=== PATIENT | female | born 1990 | race Caucasian/White ===

== ENCOUNTER 2016-10-20 11:31 | Emergency (ER) | payer BC, OTHER ==
[~2016-10-20] VITALS: Ht 157.5 cm; Wt 55.5 kg
[~2016-10-20 11:31] MED LIST: BSP/10 PO; KLN5X PO; MELA1TAB12 PO; ONDA4TAB10 SL; PARO1TAB27 PO
[2016-10-20 11:33] VITALS: TEMP 36.6; Ht 157.5 cm; Wt 55.5 kg
[2016-10-20] MEDS ORDERED: LORAZEPAM 2 MG/ML 1 ML VIAL IV STA (11:55)
[2016-10-20] MEDS ORDERED: SODIUM CHLORIDE 0.9% 1000ML 1,000 ML IV STA (11:55)
[2016-10-20] MEDS ORDERED: LORAZEPAM 2 MG/ML 1 ML VIAL IV ONE (12:00)
--- NOTE | 2016-10-20 12:03 | EMERGENCY ROOM VISIT NOTE ---
History Report prepared by Dagoberto: Ruddy Palomo Under the Supervision of: Dr. Juan Carlos De La Garza M.D. First contact with patient: 11:41 Chief Complaint: ANXIETY Stated Complaint: HIGH ANXIETY, NAUSEA, DIZZY, DIARRHEA History of Present Illness The patient is a 26 year old female who presents to the Emergency Room with complaints of worsened anxiety since yesterday. The patient has been unable to eat secondary to being so anxious. She has also vomited secondary to anxiety. The patient has had anxiety her whole life. Her parents both also experience anxiety. The patient had an appointment with her psychiatrist yesterday, which she missed. The patient hasn't gotten a call back to reschedule the appointment yet. Her last benzodiazepine prescription was last month. The patient denies alcohol use but does occasionally smoke marijuana. She denies any major medical problems. Source of History: patient Onset: yesterday Position: other (psyche) Quality: other (anxiety) Timing: worsening Associated Symptoms: + vomiting Review of Systems See HPI for pertinent positives & negatives. A total of 10 systems reviewed and were otherwise negative. Past Medical & Surgical Medical Problems: (1) Anxiety (2) Nausea, vomiting, and diarrhea (3) Ovarian cyst (4) Ovarian cyst, right Family History Anxiety disorder Social History Smoking Status: Current Every Day Smoker Alcohol Use: none Drug Use: marijuana Marital Status: single Housing Status: lives with significant other Occupation Status: employed Current/Historical Medications Scheduled Buspirone HCl (Buspirone HCl), 20 MG PO TID Clonazepam (Clonazepam), 0.25 MG PO BID Melatonin (Gnp Melatonin Maximum Str), 10 MG PO HS Paroxetine (Paxil), 20 MG PO DAILY Allergies Coded Allergies: No Known Allergies (Unverified , 10/20/16) Physical Exam Vital Signs Date Time Temp Pulse Resp B/P Pulse Ox O2 Delivery O2 Flow Rate FiO2 10/20/16 14:08 92 15 129/94 96 Room Air 10/20/16 13:32 97 16 123/89 97 Room Air 10/20/16 12:47 123 10/20/16 11:33 36.6 143 20 133/87 96 Room Air Physical Exam CONSTITUTIONAL: Moderate anxious distress. HEENT: No icterus, moist mucous membranes NECK: No meningismus, trachea is midline. CARDIOVASCULAR: Regular rate, normal perfusion RESPIRATORY: Unlabored breathing. Clear to auscultation. GASTROINTESTINAL: Non-tender GENITOURINARY: No flank tenderness MUSCULOSKELETAL: Full range of motion NEUROLOGIC: No acute gross focal deficits. PSYCHIATRIC: Normal affect SKIN: Normal for ethnicity. Medical Decision & Procedures Laboratory Results Test 10/20/16 12:09 Bedside Hemoglobin 16.0 g/dl (12.0-16.0) Bedside Hematocrit 47 % (37-47) Bedside Sodium 141 mEq/L (135-144) Bedside Potassium 3.7 mEq/L (3.3-5.0) Bedside Chloride 104 mEq/L (101-112) Bedside Total CO2 23 mEq/l (24-31) Anion Gap 18.0 mmol/L (16-25) Bedside Blood Urea Nitrogen 14 mg/dl (7-18) Bedside Creatinine 0.9 mg/dl (0.6-1.3) Bedside Glucose (other) 94 mg/dl (70-99) Bedside Ionized Calcium (Gerald) 1.13 mmol/l (1.12-1.32) Labs reviewed by ED physician. Medications Administered Medications (Trade) Dose Ordered Sig/Ross Route Start Time Stop Time Status Last Admin Dose Admin Lorazepam (Ativan Tab) 1 mg STK-MED ONCE .ROUTE 10/20/16 12:51 10/20/16 12:53 DC 10/20/16 12:55 1 MG Ondansetron HCl (Zofran Inj) 4 mg NOW STAT IV 10/20/16 14:10 10/20/16 14:11 DC 10/20/16 14:10 4 MG ED Course 1148: Past medical records reviewed. The patient was evaluated in room A5. A complete history and physical examination was performed. 1155: Ativan 1 mg IV, NSS 1000 ml wide open. 1200: Ativan 1 mg Iv. 1213: Ativan 0.5 mg PO. 1410: Zofran 4 mg IV. 1400: Upon reexamination the patient is doing better. I discussed results and treatment plan with the patient. She verbalizes agreement and understanding. The patient is ready for discharge. Medical Decision Etiologies such as mood disorder, infection, hypoglycemia, electrolyte abnormalities, cardiac sources, intracerebral event, toxicologic, neurologic, as well as others were entertained. 26-year-old presented to the emergency department for acute on chronic anxiety with prior benzodiazepine prescriptions through her psychiatrist. [employer]EC[employer] reviewed and previous prescriptions noted. She states she has been unable to arrange follow-up with her psychiatrist in a prompt manner. [facility] performed psychiatric screening notes previous interactions with patient as well as attempts follow-up. Outpatient follow-up arranged. Impression Primary Impression: Anxiety Scribe Attestation The scribe's documentation has been prepared under my direction and personally reviewed by me in its entirety. I confirm that the note above accurately reflects all work, treatment, procedures, and medical decision making performed by me. Departure Information Dispostion Home / Self-Care Referrals Inna Dill D.O. (PCP) Forms HOME CARE DOCUMENTATION FORM, IMPORTANT VISIT INFORMATION Patient Instructions Anxiety Body Response, My [facility]
[2016-10-20] MEDS ORDERED: LORAZEPAM 0.5 MG TAB PO STA (12:13)
[2016-10-20 12:26] LABS: ISTAT CREATININE 0.9 mg/dl (0.6-1.3); ISTAT IONIZED CALCIUM 1.13 mmol/l (1.12-1.32)
[2016-10-20] MEDS ORDERED: LORAZEPAM 1 MG TAB ONE (12:51)
[2016-10-20 14:08] VITALS: BP 129/94; PULSE 92; O2SAT 96
[2016-10-20] MEDS ORDERED: ONDANSETRON INJ 2 MG/ML 2 ML VIAL IV STA (14:10)
== END 2016-10-20 14:21 | disposition home or self-care (01) ==
LOC: C.EDB 11:33 → C.EDA 14:21
DX: F41.9 Anxiety disorder, unspecified (principal); F17.200 Nicotine dependence, unspecified, uncomplicated; Z81.8 Family history of other mental and behavioral disorders

== ENCOUNTER 2016-12-01 | Emergency (ER) | payer BC, OTHER ==
[~2016-12-01] VITALS: Ht 157.5 cm; Wt 58.2 kg
[~2016-12-01] MED LIST changes: -ONDA4TAB10 SL
[2016-12-01 00:07] VITALS: Ht 157.5 cm; Wt 58.2 kg
[2016-12-01] MEDS ORDERED: ALBUT/IPRATROP 3MG/0.5MG NEB 3 ML VIAL INH STA (00:22)
[2016-12-01] MEDS ORDERED: IBUPROFEN 600 MG TAB PO STA (00:22)
[2016-12-01] MEDS ORDERED: ACETAMINOPHEN 500 MG TAB PO STA (00:22)
[2016-12-01] MEDS ORDERED: ALBUTEROL HFA 8 GM INHALER INH STA (00:44)
[2016-12-01] MEDS ORDERED: DOXYCYCLINE HYCLATE 100 MG CAP PO ONE (00:45)
[2016-12-01 00:57] VITALS: BP 106/58; PULSE 106; TEMP 37.5; O2SAT 95
--- NOTE | 2016-12-01 01:04 | EMERGENCY ROOM VISIT NOTE ---
History First contact with patient: 00:17 Chief Complaint: RESPIRATORY PROBLEMS Stated Complaint: DIFFICULTY BREATHING,PAIN ON RIGHT SIDE Nursing Triage Summary: Patient reports non-productive cough x 2 months. Patient reports that s/s worsened tonight. States that when she was coughing she got a sharp pain in her right rib area, now states that it hurts to take a deep breath in. Patient denies SOB or any other s/s. History of Present Illness The patient is a 26 year old female who presents to the Emergency Room with complaints of cough and congestion for the past 2 months who smokes who started to have increasing symptoms the past few days. Patient developed a fever today. Patient states she's developed some right-sided chest wall discomfort when she coughs for the past few days. Patient denies constant or exertional chest pain, abdominal pain, vomiting, diarrhea, sore throat, neck stiffness, earache. She is tolerating by mouth fluids and food. Review of Systems See HPI for pertinent positives & negatives. A total of 10 systems reviewed and were otherwise negative. Past Medical/Surgical History Medical Problems: (1) Anxiety (2) Nausea, vomiting, and diarrhea (3) Ovarian cyst (4) Ovarian cyst, right Family History Anxiety disorder Social History Smoking Status: Current Every Day Smoker Alcohol Use: none Drug Use: marijuana Marital Status: single Housing Status: lives with significant other Occupation Status: employed Current/Historical Medications Scheduled Buspirone HCl (Buspirone HCl), 20 MG PO BID Clonazepam (Clonazepam), 0.25 MG PO BID Melatonin (Gnp Melatonin Maximum Str), 10 MG PO HS Paroxetine (Paxil), 20 MG PO DAILY Allergies Coded Allergies: No Known Allergies (Unverified , 12/01/16) Physical Exam Vital Signs Date Time Temp Pulse Resp B/P Pulse Ox O2 Delivery O2 Flow Rate FiO2 12/01/16 00:57 95 Room Air 12/01/16 00:57 37.5 106 20 106/58 95 Room Air 12/01/16 00:36 Room Air 12/01/16 00:07 38.0 125 20 95/60 94 Room Air Physical Exam VITALS: Vitals are noted on the nurse's note and reviewed by myself. Vital signs febrile GENERAL: Pleasant female, in no acute distress, nondiaphoretic, well-developed well-nourished. SKIN: The skin was without rashes, erythema, edema, or bruising. There is no tenting of the skin. Capillary reflex less than 2 seconds. HEAD: Normocephalic atraumatic. EARS: External auditory canals clear, tympanic membranes pearly collins without erythema or effusion bilaterally. EYES: Pupils equal round and reactive to light and accommodation. Conjunctivae without injection, sclerae without icterus. Extraocular movements intact. NOSE: Patent, turbinates without inflammation or discharge. No sinus tenderness. MOUTH: Mucous membranes mildly dry. Pharynx without erythema or exudate. Uvula midline. Airway patent. Tongue does not deviate. NECK: Supple without nuchal rigidity. No lymphadenopathy. No thyromegaly. Cervical spine is nontender. No JVD. HEART: Regular rate and rhythm without murmurs gallops or rubs. LUNGS: Mild diffuse end expiratory wheezes, without rales or rhonchi. No retractions or accessory muscle use. ABDOMEN: Positive bowel sounds x 4. Normal tympanic percussion. Soft, nontender, without masses or organomegaly. Dutta sign negative. No guarding or rebound tenderness. MUSCULOSKELETAL: No muscle atrophy, erythema, or edema noted. NEURO: Patient was alert and oriented to person place and time. Normal sensation to light and sharp touch. No focal neurological deficits. Medical Decision & Procedures Laboratory Results Test 12/01/16 00:35 Medications Administered Medications (Trade) Dose Ordered Sig/Ross Route Start Time Stop Time Status Last Admin Dose Admin Acetaminophen (Tylenol Tab) 1,000 mg NOW STAT PO 12/01/16 00:22 12/01/16 00:23 DC 12/01/16 00:29 1,000 MG Ibuprofen (Motrin Tab) 600 mg NOW STAT PO 12/01/16 00:22 12/01/16 00:23 DC 12/01/16 00:29 600 MG Albuterol/ Ipratropium (Duoneb) 3 ml NOW STAT INH 12/01/16 00:22 12/01/16 00:23 DC 12/01/16 00:29 3 ML Prednisone (PredniSONE TAB) 60 mg NOW STAT PO 12/01/16 00:22 12/01/16 00:23 DC 12/01/16 00:29 60 MG Doxycycline Hyclate (Vibramycin Cap) 100 mg ONE ONCE PO 12/01/16 00:45 12/01/16 00:46 DC 3/7/17 00:54 100 MG Albuterol (Ventolin Hfa Inhaler) 2 puffs ONE STAT INH 12/01/16 00:44 12/01/16 00:45 DC 12/01/16 00:54 2 PUFFS ED Course Prior records/ancillary studies reviewed. Triage Nursing notes reviewed. The patient's history was concerning for fever and cough. Differential diagnosis: Etiologies such as viral syndrome, otitis, pharyngitis, pneumonia, influenza, meningitis, urinary tract infection, sepsis, bacteremia, as well as others were entertained. Physical examination: Patient was alert and interactive. ER treatment provided: Tylenol, Motrin, nebulizer, prednisone On reassessment the patient felt better. Diagnostics interpreted by me: Imaging studies: Chest x-ray concerning for right lower lobe pneumonia per my interpretation This appears to be consistent with pneumonia with wheezing. Patient was strongly encouraged to quit smoking. She is started on antibiotics. She is advised to use the inhaler. She is advised to follow-up family care in a few days or here in the ER sooner for high fevers, difficulty breathing, neck stiffness, worsening signs or symptoms or as needed. Patient also had some mild chest pain with coughing most likely pleurisy due to the infection. Patient has no signs of meningitis. She was well-appearing. By the evaluation outlined above emergent etiologies such as otitis, pharyngitis, meningitis, urinary tract infection, sepsis, bacteremia, as well as others were deemed relatively unlikely. The pt informed about the findings as listed above. All questions were answered and pleased with the treatment. Return instructions were outlined and the patient was discharged in stable condition. Outpatient prescription management: Doxycycline, prednisone Referral: The patient was referred back to their primary care physician for follow-up in 2 to 3 days for a recheck of the current condition. Case reviewed with my Attending Medical Decision As above Impression Primary Impression: Right lower lobe pneumonia Departure Information Dispostion Home / Self-Care Condition GOOD Referrals Inna Dill D.O. (PCP) Patient Instructions [facility] Additional Instructions Doxycycline 100mg: Take one pill twice daily for seven days for your infection. Take with food, but avoid dairy. Avoid prolonged sun exposure since this medication makes you temporarily more susceptible to sunburns. All antibiotics can cause diarrhea. If this occurs and you feel worse or it does not resolve in 1-2 days follow up with your doctor or return to the Emergency Department as this could be signs of serious underlying problems. Any medication can cause an allergic reaction, stop the pills immediately and return to the ER for rash, hives, breathing difficulties, or swelling. Albuterol Inhaler: Take 2 puffs four times daily for seven days, then as needed. Prednisone 50 m tablet daily for the next 4 days. Acetaminophen(Tylenol) may be used for fever or pain. Use 1000mg every six hours as needed. Avoid using more than 3000mg in a 24 hour period. AND/OR Ibuprofen(Motrin, Advil) may be used for fever or pain. Use 600mg every six hours as needed. Take with food. Avoid using more than 2400mg in a 24 hour period. Do not use 2400mg per day for more than three consecutive days without physician direction. Prolonged inappropriate use can lead to stomach upset or ulcers. Controlling your fever with Tylenol and Ibuprofen as above will make you feel better. Rest and drink plenty of fluids. Avoid strenuous activity until your symptoms resolve and your breathing returns to normal. Continue current medications. Return to the ER for chest pain, difficulty breathing, persistent fevers, vomiting, worsening of your condition, or as needed. Follow-up with family care in 2-3 days. Problem Qualifiers Primary Impression: Right lower lobe pneumonia Pneumonia type: due to unspecified organism Qualified Codes: J18.1 - Lobar pneumonia, unspecified organism
[2016-12-01] MEDS ORDERED: DOXY100C2 PO (01:05)
[2016-12-01] MEDS ORDERED: PRED50TA PO (01:05)
[2016-12-01 02:54] LABS: INFLUENZA A PCR Neg for Influ A (NEG); INFLUENZA B PCR Neg for Influ B (NEG)
--- NOTE | 2016-12-01 06:33 | DIAGNOSTIC IMAGING REPORT ---
CHEST 2 VIEWS ROUTINE CLINICAL HISTORY: cough/fever COMPARISON STUDY: 09/14/2016 FINDINGS: The cardiac and mediastinal contours remain stable. There are bibasal airspace opacities which in the lateral view appear localized to the lingula and right middle lobe. Given history, the findings likely represent a pneumonia. Films subsequent to treatment are recommended in follow-up.[ No pleural effusions are visualized. IMPRESSION: Bibasal airspace opacities consistent with pneumonia. Films subsequent to treatment are recommended in follow-up. Electronically signed by: Raymond Walters M.D. 12/01/2016 6:31 AM Dictated Date/Time: 12/01/2016 6:30 AM
== END 2016-12-01 01:12 | disposition home or self-care (01) ==
LOC: C.EDB 00:01
DX: J18.1 Lobar pneumonia, unspecified organism (principal); F41.9 Anxiety disorder, unspecified; F17.210 Nicotine dependence, cigarettes, uncomplicated; F12.10 Cannabis abuse, uncomplicated; Z79.899 Other long term (current) drug therapy

== ENCOUNTER 2017-04-15 07:11 | Emergency (ER) | payer BC, OTHER ==
[~2017-04-15] VITALS: Ht 157.5 cm; Wt 64.0 kg
[~2017-04-15 07:11] MED LIST changes: +DOXY100C2 PO
[2017-04-15 07:15] VITALS: TEMP 36.9; Ht 157.5 cm; Wt 64.0 kg
[2017-04-15] MEDS ORDERED: SODIUM CHLORIDE 0.9% 1000ML 1,000 ML IV STA (07:38)
[2017-04-15] MEDS ORDERED: LORAZEPAM 2 MG/ML 1 ML VIAL IV STA (07:38)
[2017-04-15] MEDS ORDERED: ONDANSETRON INJ 2 MG/ML 2 ML VIAL IV STA (07:38)
[2017-04-15] MEDS ORDERED: ATR10 PO (07:40)
[2017-04-15 07:52] LABS: BASO % 0.3 %; BASO ABS # 0.03 K/uL (0-0.2); COMPLETE YES; EOS % 1.8 %; HEMATOCRIT 42.1 % (37-47); IG% 0.2 %; LYMPH % 6.5 %; LYMPH ABS # 0.63 K/uL (1.2-3.4); MEAN CELL VOLUME 88.4 fL (80-100); MEAN CORPUSCULAR HEMOGLOBIN 30.9 pg (25-34); MEAN CORPUSCULAR HGB CONC 34.9 g/dl (32-36); MEAN PLATELET VOLUME 9.8 fL (7.4-10.4); MONO % 6.4 %; NEUT % 84.8 %; PLATELET COUNT 283 K/uL (130-400); RED BLOOD COUNT 4.76 M/uL (4.2-5.4); WHITE BLOOD COUNT 9.69 K/uL (4.8-10.8)
[2017-04-15 07:59] LABS: MANUAL MICROSCOPIC REQUIRED? YES; URINE APPEARANCE SL CLOUDY (CLEAR); URINE BILIRUBIN NEG (NEG); URINE COLOR YELLOW; URINE NITRITE NEG (NEG); URINE PH >= 9.0 (4.5-7.5); UROBILINOGEN NEG (NEG)
[2017-04-15 08:01] LABS: BUN/CREATININE RATIO 10.3 (10-20); CALCIUM 9.4 mg/dl (8.5-10.1); CREATININE 0.98 mg/dl (0.60-1.20); POTASSIUM 3.7 mmol/L (3.5-5.1)
[2017-04-15 08:03] LABS: PREG INTERNAL NEGATIVE QC NEG CLEAR BACKGROUND; PREG INTERNAL POSITIVE QC POS CONTROL LINE
[2017-04-15 08:11] LABS: REVIEW REQ? NO; SULFASALICYLIC ACID NEG (NEG)
[2017-04-15 08:15] LABS: URINE MUCUS PRESENT (NONE PRSENT)
[2017-04-15 08:16] LABS: URINE BACTERIA 1+ (NEG); URINE RBC 0-4 /hpf (0-4)
[2017-04-15 08:17] LABS: BENZODIAZEPINE, URINE NEG (NEG); COCAINE,URINE NEG (NEG); PHENCYCLIDINE, URINE NEG (NEG)
--- NOTE | 2017-04-15 08:19 | DIAGNOSTIC IMAGING REPORT ---
ABDOMEN 2VIEW W/PA CHEST RTN HISTORY: 27 years Female acute abdominal pain COMPARISON: Chest radiograph 12/01/2016 TECHNIQUE: Frontal view of the chest with erect and supine views of the abdomen FINDINGS: Cardiomediastinal and hilar silhouettes are within normal limits. A nodular opacity at the level left lung base is seen suggesting nipple shadow. No pneumothorax, pleural effusion or focal airspace consolidation. No pneumoperitoneum on the upright projection. No significant air-fluid levels are seen. The bowel gas pattern is nonobstructive. Mild to moderate volume of formed stool seen throughout the colon. There is gentle convex left curvature of the lumbar spine. Gentle convex right curvature of the midthoracic spine is noted. IMPRESSION: 1. No acute cardiopulmonary process. 2. Nonobstructive bowel gas pattern. 3. Mild sigmoidal thoracolumbar scoliosis. The above report was generated using voice recognition software. It may contain grammatical, syntax or spelling errors. Electronically signed by: Rommel Colón M.D. 04/15/2017 8:18 AM Dictated Date/Time: 04/15/2017 8:13 AM
[2017-04-15 08:47] VITALS: BP 103/58; PULSE 125; O2SAT 97
[2017-04-15] MEDS ORDERED: ONDA4TAB46 PO (08:52)
--- NOTE | 2017-04-17 10:29 | EMERGENCY ROOM VISIT NOTE ---
ED Visit Note First contact with patient: 07:14 Chief Complaint: Nausea and vomiting. History of Present Illness: Ms. Alvares is a 27-year-old white female who ambulates into the ED accompanied by male friend with multiple complaints. Historically patient reports she has a history of anxiety and irritable bowel syndrome. Patient reports her symptoms started last night approximately dinnertime. At that time she began to have nausea and throughout the night it has been continuous with multiple episodes of vomiting. This is worsened with eating or drinking. She has not identified any alleviating factors related to nausea or vomiting. Associated with her nausea and vomiting she reports that she is having dizziness and feels short of breath. This morning while driving into the hospital to be seen she reports she started getting tingling sensations in her extremities and chest. She also continues to feel short of breath but does report intermittently she has chills but has not been able to find any chelsey fevers and she is feeling very anxious because she was supposed to start a new job today. She denies skin eruptions, skin color changes, recent head trauma, cough, wheezing, palpitations, orthopnea, dependent edema, previous clots, claudication , cramping, diarrhea, constipation, hematemesis, rectal bleeding, black/tarry stools, urinary symptoms, hematuria, vaginal bleeding, vaginal discharge. Review of Systems: As noted above in history of present illness. All body systems were reviewed and found to be negative as noted above. Past Medical History: As previously noted, bronchitis, pneumonia, depression Current Medications: Medications Dose Route/Sig Max Daily Dose Days Date Category Hydroxyzine HCl 10 Mg Tab 10 Mg PO HS 04/15/17 Reported Gnp Melatonin Maximum Str (Melatonin) 5 Mg Tab 10 Mg PO HS 09/14/16 Reported Clonazepam 0.5 Mg Tab 0.25 Mg PO BID 06/07/16 Reported Buspirone HCl 10 Mg Tab 20 Mg PO BID 06/07/16 Reported Paxil (Paroxetine HCl) 20 Mg Tab 20 Mg PO DAILY 06/07/16 Reported Allergies to Medications: Patient denies. Social History: Patient is currently employed; she feels safe in her home environment; she admits to tobacco use and marijuana use and denies alcohol use. Physical Examination: Vital Signs: Date Time Temp Pulse Resp B/P (MAP) Pulse Ox O2 Delivery O2 Flow Rate FiO2 04/15/17 08:47 125 18 103/58 97 Room Air 04/15/17 07:47 94 109/68 97 111/83 104 114/73 04/15/17 07:21 117 04/15/17 07:20 118 04/15/17 07:15 36.9 133 20 121/76 100 Room Air GENERAL: 27-year-old female in mild to moderate distress due to symptoms, nontoxic-appearing, afebrile and hemodynamically stable. Patient is very anxious and intermittently tearful. NEUROLOGICAL: Awake, alert and oriented to person, place and time. Answering questions appropriately and following commands. Normal gait. Good hand eye coordination. No focal motor or sensory deficits. SKIN: Warm, dry and pink. No soft tissue eruptions or trauma noted. HEENT: Atraumatic and normocephalic. PERRLA. Sclera white and conjunctiva pink. No drainage from naris. Oral cavity moist and pink. Pharynx is nonerythematous or edematous. Speech normal. No lymphadenopathy. Trachea midline. No jugular venous distention. No carotid bruits. BACK: No tenderness over the bony spine. No CVA tenderness. THORAX: Lungs sounds are clear to auscultation and equal bilaterally with symmetrical chest wall. No wheezing, rales or rhonchi. No crepitus, tenderness , subcutaneous air or deformities noted. HEART: Tachycardic rate and rhythm. No gallops, rubs or murmurs are appreciated. ABDOMEN: Flat, soft and nontender. Positive bowel sounds in all quadrants. No guarding, rigidity or organomegaly. EXTREMITIES: Moves all extremities well on command and with purpose. All distal neurovascular statuses are intact and equal bilaterally. No calf tenderness or cords. ED Course: Patient is assessed as noted above. Patient's medication list was reviewed. Laboratory Testing: Test 04/15/17 07:27 04/15/17 07:30 Range/Units White Blood Count 9.69 4.8-10.8 K/uL Red Blood Count 4.76 4.2-5.4 M/uL Hemoglobin 14.7 12.0-16.0 g/dL Hematocrit 42.1 37-47 % Mean Corpuscular Volume 88.4 80-100 fL Mean Corpuscular Hemoglobin 30.9 25-34 pg Mean Corpuscular Hemoglobin Concent 34.9 32-36 g/dl Platelet Count 283 130-400 K/uL Mean Platelet Volume 9.8 7.4-10.4 fL Neutrophils (%) (Auto) 84.8 % Lymphocytes (%) (Auto) 6.5 % Monocytes (%) (Auto) 6.4 % Eosinophils (%) (Auto) 1.8 % Basophils (%) (Auto) 0.3 % Neutrophils # (Auto) 8.22 1.4-6.5 K/uL Lymphocytes # (Auto) 0.63 1.2-3.4 K/uL Monocytes # (Auto) 0.62 0.11-0.59 K/uL Eosinophils # (Auto) 0.17 0-0.5 K/uL Basophils # (Auto) 0.03 0-0.2 K/uL RDW Standard Deviation 42.6 36.4-46.3 fL RDW Coefficient of Variation 13.2 11.5-14.5 % Immature Granulocyte % (Auto) 0.2 % Immature Granulocyte # (Auto) 0.02 0.00-0.02 K/uL Sodium Level 137 136-145 mmol/L Potassium Level 3.7 3.5-5.1 mmol/L Chloride Level 105 98-107 mmol/L Carbon Dioxide Level 25 21-32 mmol/L Anion Gap 7.0 3-11 mmol/L Blood Urea Nitrogen 10 7-18 mg/dl Creatinine 0.98 0.60-1.20 mg/dl Est Creatinine Clear Calc Drug Dose 77.1 ml/min Estimated GFR () 92.9 Estimated GFR (Non- 80.2 BUN/Creatinine Ratio 10.3 10-20 Random Glucose 95 70-99 mg/dl Calcium Level 9.4 8.5-10.1 mg/dl Total Bilirubin 1.6 0.2-1 mg/dl Direct Bilirubin 0.3 0-0.2 mg/dl Aspartate Amino Transf (AST/SGOT) 16 15-37 U/L Alanine Aminotransferase (ALT/SGPT) 15 12-78 U/L Alkaline Phosphatase 86 45-117 U/L Total Protein 8.1 6.4-8.2 gm/dl Albumin 4.2 3.4-5.0 gm/dl Lipase 106 73-393 U/L Human Chorionic Gonadotropin, Qual NEG NEG Urine Color YELLOW Urine Appearance SL CLOUDY CLEAR Urine pH >= 9.0 4.5-7.5 Urine Specific [place] 1.010 1.000-1.030 Urine Protein NEG NEG Urine Glucose (UA) NEG NEG Urine Ketones TRACE NEG Urine Occult Blood 3+ NEG Urine Nitrite NEG NEG Urine Bilirubin NEG NEG Urine Urobilinogen NEG NEG Urine Leukocyte Esterase NEG NEG Urine RBC 0-4 0-4 /hpf Urine WBC 1-5 0-5 /hpf Urine Epithelial Cells >30 0-5 /lpf Urine Bacteria 1+ NEG Urine Mucus PRESENT NONE PRSENT Urine Test NEG NEG Urine Opiates Screen NEG NEG Urine Methadone, Qualitative NEG NEG Urine Barbiturates NEG NEG Urine Phencyclidine (PCP) Level NEG NEG Ur Amphetamine/Methamphetamine NEG NEG MDMA (Ecstasy) Screen NEG NEG Urine Benzodiazepines Screen NEG NEG Urine Cocaine Metabolite NEG NEG Urine Marijuana (THC) POS NEG EKG: Was read by myself and reviewed with Dr. Moya; shows normal sinus rhythm with a ventricular rate of 90 bpm. Normal axis, intervals and complexes. No acute ST changes indicating ischemia, injury or infarction. This was compared to a previous from August 2016 and no acute changes were noted. Acute Abdominal Series: Were read by myself and the radiologist showing a PA chest with no signs of infiltrates, effusions or pneumothorax. Normal heart silhouette and bony anatomy. Abdominal component shows no pneumoperitoneum, air -fluid levels and a nonobstructive bowel gas pattern. Radiologist did note mild to moderate fecal retention throughout the colon and a gentle convex left curvature of the lumbar spine and mid thoracic spine. Patient was hydrated with normal saline and received 4 mg of Zofran IV and 1 mg of Ativan IV. Patient was reassessed multiple times during her stay in the emergency department. Patient's case was reviewed with Dr. Moya; we agreed on diagnostic approach, treatment, disposition and plan. Patient was educated about today's findings and instructed on her treatment plan ; she verbalizes understanding and agreement with this plan. Clinical Impression: Nausea and vomiting. Anxiety exacerbation. Decision-Making: Initially my differential diagnosis I considered gastritis, pneumonia, pyelonephritis, pancreatitis, anxiety exacerbation, early and other causes. Disposition: Patient discharged home in stable condition accompanied by male friend; prior to departure she was reassessed and subjectively reported she was feeling much better. She had resolution of nausea/vomiting and felt much less anxious. Plan: Patient was encouraged to continue her current medications as prescribed. Patient was prescribed Zofran ODT and instructed on its use. Patient was encouraged use a bland diet for the next 48 hours and avoid stomach irritants. Patient was encouraged increased clear fluids. Patient was encouraged to follow-up with her PCP for recheck in 2-3 days. Patient was encouraged return ED for worsening/uncontrolled vomiting, bloody vomitus, bloody stools, fevers, worsening ascites or any new/concerning symptoms.
== END 2017-04-15 09:10 | disposition home or self-care (01) ==
LOC: C.EDB 07:12 → C.EDA 09:10
DX: R11.2 Nausea with vomiting, unspecified (principal); F41.9 Anxiety disorder, unspecified; K58.9 Irritable bowel syndrome, unspecified; K59.00 Constipation, unspecified; F32.9 Major depressive disorder, single episode, unspecified; F17.200 Nicotine dependence, unspecified, uncomplicated; F12.10 Cannabis abuse, uncomplicated

== ENCOUNTER 2017-09-22 03:51 | Emergency (ER) | payer BC ==
[~2017-09-22] VITALS: Ht 157.5 cm; Wt 68.5 kg
[~2017-09-22 03:51] MED LIST changes: -DOXY100C2 PO
[2017-09-22 03:53] VITALS: TEMP 37.4; Ht 157.5 cm; Wt 68.5 kg
[2017-09-22] MEDS ORDERED: LORAZEPAM 2 MG/ML 1 ML VIAL IV STA ×2 (04:06→04:27)
[2017-09-22] MEDS ORDERED: SODIUM CHLORIDE 0.9% 500ML 500 ML IV STA (04:06)
[2017-09-22] MEDS ORDERED: ONDANSETRON INJ 2 MG/ML 2 ML VIAL IV STA (04:16)
[2017-09-22 04:20] LABS: BASO % 0.1 %; BASO ABS # 0.01 K/uL (0-0.2); HEMATOCRIT 41.4 % (37-47); HEMOGLOBIN 14.2 g/dL (12.0-16.0); IG# 0.04 K/uL (0.00-0.02); LYMPH % 22.6 %; LYMPH ABS # 2.52 K/uL (1.2-3.4); MEAN CELL VOLUME 86.3 fL (80-100); MEAN CORPUSCULAR HEMOGLOBIN 29.6 pg (25-34); MEAN CORPUSCULAR HGB CONC 34.3 g/dl (32-36); MEAN PLATELET VOLUME 9.9 fL (7.4-10.4); MONO % 7.4 %; MONO ABS # 0.83 K/uL (0.11-0.59); NEUT % 69.5 %; NEUT ABS # 7.75 K/uL (1.4-6.5); PLATELET COUNT 189 K/uL (130-400); RED CELL DISTRIBUTION WIDTH CV 12.8 % (11.5-14.5); RED CELL DISTRIBUTION WIDTH SD 40.3 fL (36.4-46.3); WHITE BLOOD COUNT 11.15 K/uL (4.8-10.8)
--- NOTE | 2017-09-22 04:32 | EMERGENCY ROOM VISIT NOTE ---
History Report prepared by Dagoberto: Jamie Bautista Under the Supervision of: Dr. Macarena Rivas D.O. First contact with patient: 03:58 Chief Complaint: NAUSEA Stated Complaint: NAUSEA,PNEUMONIA Nursing Triage Summary: Pt reports she was dx with pneumonia yesterday and placed on Zithromax. Tonight pt having nausea, vomiting and abdominal cramps. History of Present Illness The patient is a 27 year old female who presents to the Emergency Room with complaints of nausea that began yesterday. The patient began having a cough a couple of days ago, but did not think much of it. Yesterday, the patient woke and with a worsening cough so she went to an Urgent Care center. She was diagnosed with pneumonia per auscultation and did not receive a chest x-ray. She was placed on Azithromycin which she has taken in the past, which has not given her problems. She went home and began to experience nausea and vomiting whenever she tried to eat or drink anything. She notes that her cough has not improved. She is also experiencing diarrhea. She has been having trouble sleeping as well. She has a past medical history of anxiety and is taking medications for it. She denies any abdominal pain, leg cramping, or leg swelling. Her last menstrual cycle was three weeks ago. Source of History: patient Onset: yesterday Position: other (GI) Symptom Intensity: moderate Quality: other (Nausea) Timing: constant Associated Symptoms: + cough, + vomiting, + diarrhea, No abdominal pain Note: She denies any leg swelling or leg cramping. Review of Systems See HPI for pertinent positives & negatives. A total of 10 systems reviewed and were otherwise negative. Past Medical & Surgical Medical Problems: (1) Anxiety (2) Nausea, vomiting, and diarrhea (3) Ovarian cyst (4) Ovarian cyst, right Family History Anxiety disorder Social History Smoking Status: Current Every Day Smoker Alcohol Use: none Drug Use: marijuana Marital Status: single Housing Status: lives with significant other Occupation Status: employed Current/Historical Medications Scheduled Buspirone HCl (Buspirone HCl), 20 MG PO BID Clonazepam (Clonazepam), 0.5 MG PO HS Hydroxyzine HCl (Hydroxyzine HCl), 25 MG PO HS Melatonin (Gnp Melatonin Maximum Str), 10 MG PO HS Paroxetine (Paxil), 20 MG PO HS Paroxetine (Paroxetine HCl), 40 MG PO QAM Allergies Coded Allergies: No Known Allergies (Unverified , 09/22/17) Physical Exam Vital Signs Date Time Temp Pulse Resp B/P (MAP) Pulse Ox O2 Delivery O2 Flow Rate FiO2 09/22/17 06:21 113 18 114/72 95 Room Air 09/22/17 05:09 99 16 107/66 95 Room Air 09/22/17 03:53 37.4 123 24 140/85 95 Room Air Physical Exam General: Appears to be extremely anxious. HEENT: Head - normocephalic and atraumatic Pupils are equal, round, and reactive to light. Extraocular eye muscles are intact, and sclera are anicteric. Nose - moist nasal mucosa without discharge. Mouth - moist buccal mucosa. Oropharynx is nonerythematous and there is no tonsillar exudate or edema noted. Neck: Supple; no JVD, nuchal rigidity, cervical lymphadenopathy. Heart: Tachycardic rate and regular rhythm. There is a normal S1 and S2 with no murmurs, clicks, or gallops appreciated. Lungs: Clear to auscultation bilaterally with no wheezes, rales, or rhonchi. Abdomen: Soft, completely nontender, nondistended, with good bowel sounds. There are no palpable pulsatile masses or hepatosplenomegaly. There is no guarding, rigidity, or rebound noted. Extremities: No evidence of cyanosis, clubbing, or edema. There are easily palpable peripheral pulses. Skin: warm and dry with good turgor and no rashes. Medical Decision & Procedures Laboratory Results 09/22/17 04:05 Red Blood Count 4.80, Mean Corpuscular Volume 86.3, Mean Corpuscular Hemoglobin 29.6, Mean Corpuscular Hemoglobin Concent 34.3, Mean Platelet Volume 9.9, Neutrophils (%) (Auto) 69.5, Lymphocytes (%) (Auto) 22.6, Monocytes (%) (Auto) 7.4, Eosinophils (%) (Auto) 0.0, Basophils (%) (Auto) 0.1, Neutrophils # (Auto) 7.75, Lymphocytes # (Auto) 2.52, Monocytes # (Auto) 0.83, Eosinophils # (Auto) 0.00, Basophils # (Auto) 0.01 09/22/17 04:05 Test 09/22/17 04:05 White Blood Count 11.15 K/uL (4.8-10.8) Red Blood Count 4.80 M/uL (4.2-5.4) Hemoglobin 14.2 g/dL (12.0-16.0) Hematocrit 41.4 % (37-47) Mean Corpuscular Volume 86.3 fL (80-100) Mean Corpuscular Hemoglobin 29.6 pg (25-34) Mean Corpuscular Hemoglobin Concent 34.3 g/dl (32-36) Platelet Count 189 K/uL (130-400) Mean Platelet Volume 9.9 fL (7.4-10.4) Neutrophils (%) (Auto) 69.5 % Lymphocytes (%) (Auto) 22.6 % Monocytes (%) (Auto) 7.4 % Eosinophils (%) (Auto) 0.0 % Basophils (%) (Auto) 0.1 % Neutrophils # (Auto) 7.75 K/uL (1.4-6.5) Lymphocytes # (Auto) 2.52 K/uL (1.2-3.4) Monocytes # (Auto) 0.83 K/uL (0.11-0.59) Eosinophils # (Auto) 0.00 K/uL (0-0.5) Basophils # (Auto) 0.01 K/uL (0-0.2) RDW Standard Deviation 40.3 fL (36.4-46.3) RDW Coefficient of Variation 12.8 % (11.5-14.5) Immature Granulocyte % (Auto) 0.4 % Immature Granulocyte # (Auto) 0.04 K/uL (0.00-0.02) Anion Gap 8.0 mmol/L (3-11) Est Creatinine Clear Calc Drug Dose 84.8 ml/min Estimated GFR () 100.3 Estimated GFR (Non- 86.5 BUN/Creatinine Ratio 7.0 (10-20) Calcium Level 9.0 mg/dl (8.5-10.1) Total Bilirubin 0.6 mg/dl (0.2-1) Direct Bilirubin 0.2 mg/dl (0-0.2) Aspartate Amino Transf (AST/SGOT) 36 U/L (15-37) Alanine Aminotransferase (ALT/SGPT) 28 U/L (12-78) Alkaline Phosphatase 109 U/L (45-117) Total Protein 8.3 gm/dl (6.4-8.2) Albumin 3.9 gm/dl (3.4-5.0) Laboratory results per my review. Medications Administered Medications (Trade) Dose Ordered Sig/Ross Route Start Time Stop Time Status Last Admin Dose Admin Sodium Chloride 500 ml @ 999 mls/hr Q31M STAT IV 09/22/17 04:06 09/22/17 04:36 DC 09/22/17 04:18 999 MLS/HR Ondansetron HCl (Zofran Inj) 4 mg NOW STAT IV 09/22/17 04:16 09/22/17 04:17 DC 09/22/17 04:21 4 MG Lorazepam (Ativan Inj) 1 mg NOW STAT IV 09/22/17 04:27 09/22/17 04:29 DC 09/22/17 04:34 1 MG Promethazine HCl 12.5 mg/Sodium Chloride 50.5 ml @ 204 mls/hr NOW STAT IV 09/22/17 05:51 09/22/17 06:05 DC 09/22/17 06:01 204 MLS/HR Procedure Sodium Chloride 500 ml @ 999 mls/hr IV Zofran Inj 4 mg IV Ativan Inj 1 mg IV Promethazine HCl 12.5 mg/Sodium Chloride 50.5 ml @ 204 mls/hr IV ED Course 0358: Past medical records reviewed. The patient was evaluated in room A4. A complete history and physical exam was performed. An IV lock was initiated and labs are drones above. 0406: Ordered Sodium Chloride 500 ml @ 999 mls/hr IV. 0416: She notified me that she does not want to Ativan and would like to try Zofran. Ordered Zofran Inj 4 mg IV. 0427: She would now like the Ativan. Ordered Ativan Inj 1 mg IV. 0514: Upon reevaluation, she is now able to drink clear fluids. 0520: She is feeling significantly better. She is drinking water but would prefer Cece Olamide. 0547: The patient is feeling more nauseated and anxious at this time. I will order her Phenergan. 0551: Ordered Promethazine HCl 12.5 mg/Sodium Chloride 50.5 ml @ 204 mls/hr IV 0625: Upon reevaluation, the patient had gotten up to go to the bathroom and became moderately nauseated. She began to dry heave without physically vomiting. I offered her further treatment as an inpatient in our facility but she refused stating that she would like to try to go home. 0645: Upon reevaluation, the patient is resting. I discussed findings and results with her. She continues to feel nauseated but would still like to go home. I will give her a Zofran home pack . She verbalized agreement of the treatment plan. She was discharged home. Medical Decision The patient is a 27 year old female who presents to the ED with nausea. Differential diagnosis includes medication side effects, anxiety attack, and viral gastritis. Laboratory Results: White blood cell count 11.1, stable H&H, normal renal function, glucose 124, potassium and sodium slightly low, LFTs normal This is a 27-year-old female patient with a history of significant anxiety. The patient was diagnosed with a pneumonia and started Zithromax. She then developed significant nausea which seems to have exacerbated her anxiety. The patient was given multiple anti-nausea meds along with some Ativan. She would have intermittent times of relief but the nausea and anxiety persisted. I had off the patient to stay in the hospital for intractable nausea but she declined. I've encouraged patient to follow-up with her PCP if the symptoms persist. She should take her Zithromax in the evenings to minimize the side effects. She was told to return to the emergency department if she had worsening symptoms. Medication Reconcilliation Current Medication List: was personally reviewed by me Blood Pressure Screening Patient's blood pressure: Normal blood pressure Blood pressure disposition: Did not require urgent referral Prior to receiving fluids, Ativan, and Zofran, the patient was hypertensive which decreased after receiving these medications and was situational. Impression Primary Impression: Nausea & vomiting Scribe Attestation The scribe's documentation has been prepared under my direction and personally reviewed by me in its entirety. I confirm that the note above accurately reflects all work, treatment, procedures, and medical decision making performed by me. Departure Information Dispostion Home / Self-Care Referrals No Doctor, Assigned (PCP) Forms HOME CARE DOCUMENTATION FORM, IMPORTANT VISIT INFORMATION Patient Instructions My [facility], [facility] Additional Instructions Rest. take plenty of clear liquids Take zithromax at night with some food to avoid nausea Return to the ER if symptoms worsen. Problem Qualifiers Primary Impression: Nausea & vomiting Vomiting type: unspecified Vomiting Intractability: intractable Qualified Codes: R11.2 - Nausea with vomiting, unspecified
[2017-09-22 04:42] LABS: ALBUMIN 3.9 gm/dl (3.4-5.0); CREATININE 0.92 mg/dl (0.60-1.20); POTASSIUM 3.3 mmol/L (3.5-5.1)
[2017-09-22 04:45] LABS: TOTAL PROTEIN 8.3 gm/dl (6.4-8.2)
[2017-09-22] MEDS ORDERED: PROMETHAZINE HCL INJ 12.5 MG in SODIUM CHLORIDE 0.9% 50ML 50 ML IV STA (05:51)
[2017-09-22 06:44] VITALS: BP 112/73; PULSE 103; O2SAT 95
[2017-09-22] MEDS ORDERED: ONDANSETRON HOME PACK 4MG OD TAB PO ONE (06:45)
[2017-09-22] MEDS ORDERED: PROM25SU28 PR (15:12)
[2017-09-22] MEDS ORDERED: PROM12.529 PO (15:12)
[2017-09-22] MEDS ORDERED: CEPH-571 PO (15:12)
[2017-09-28] MEDS ORDERED: NICO14DI5 TD (10:41)
[2017-09-28] MEDS ORDERED: LEVO-18 PO (10:41)
[2017-09-28] MEDS ORDERED: VNTHFA/IN INH (13:03)
[2017-09-28] MEDS ORDERED: ONDA4TAB65 PO (14:31)
[2017-12-22] MEDS ORDERED: CLON0.5T9 PO (20:44)
== END 2017-09-22 06:47 | disposition home or self-care (01) ==
LOC: C.EDB 03:51 → C.EDA 06:47
DX: R11.2 Nausea with vomiting, unspecified (principal); J18.9 Pneumonia, unspecified organism; F41.9 Anxiety disorder, unspecified; F17.200 Nicotine dependence, unspecified, uncomplicated; Z81.8 Family history of other mental and behavioral disorders; R19.7 Diarrhea, unspecified; N30.01 Acute cystitis with hematuria; N83.201 Unspecified ovarian cyst, right side; F12.10 Cannabis abuse, uncomplicated

== ENCOUNTER 2017-09-22 11:46 | Emergency (ER) | payer BC ==
[~2017-09-22] VITALS: Ht 157.5 cm; Wt 69.3 kg
[~2017-09-22 11:46] MED LIST changes: +ATR25 PO; +PRX/40 PO
[2017-09-22 11:50] VITALS: TEMP 37.1; Ht 157.5 cm; Wt 69.3 kg
[2017-09-22] MEDS ORDERED: GI COCKTAIL PO STA (12:06)
[2017-09-22] MEDS ORDERED: ONDANSETRON 4MG OD TAB PO STA (12:06)
[2017-09-22] MEDS ORDERED: FAMOTIDINE 20 MG TAB PO ONE (12:15)
[2017-09-22] MEDS ORDERED: LIDOCAINE HCL 2% VISC SOLN 20 ML UDC ONE (12:16)
[2017-09-22] MEDS ORDERED: ALUMINUM/MAGNESIUM SUSP 30 ML UDC ONE (12:17)
--- NOTE | 2017-09-22 12:17 | EMERGENCY ROOM VISIT NOTE ---
History Report prepared by Dagoberto: Yesenia Armando Under the Supervision of: Dr. Onur Mercer M.D. First contact with patient: 12:00 Chief Complaint: NAUSEA Stated Complaint: NAUSEA,PNEUMONIA Nursing Triage Summary: "I was here a couple hours ago. They tried some medicines they wanted me to stay but I left. I am unable to keep anything down. so Im back." History of Present Illness The patient is a 27 year old female with a past medical history of anxiety and ovarian cysts who presents to the ED with a cc of nausea beginning 2 days ago. Positive incontinence, which worsens with coughing. Negative appetite, changes in medicine or diet, and diarrhea. She notes she has her stomach has been burning, which worsens when she tries to eat. The patient states that she was diagnosed with pneumonia recently, noting she took a z-pack today. Source of History: patient Onset: 2 days ago Position: other (global) Quality: other (nausea) Modifying Factors (Worsening): eating Associated Symptoms: + cough, No diarrhea Review of Systems See HPI for pertinent positives and negatives. A total of ten systems were reviewed and were otherwise negative. Past Medical & Surgical Medical Problems: (1) Anxiety (2) Nausea, vomiting, and diarrhea (3) Ovarian cyst (4) Ovarian cyst, right Family History Anxiety disorder Social History Smoking Status: Current Every Day Smoker Alcohol Use: none Drug Use: marijuana Marital Status: single Housing Status: lives with significant other Occupation Status: employed Current/Historical Medications Scheduled Buspirone HCl (Buspirone HCl), 20 MG PO BID Cephalexin (Keflex), 1 CAP PO BID Clonazepam (Clonazepam), 0.5 MG PO HS Hydroxyzine HCl (Hydroxyzine HCl), 25 MG PO HS Melatonin (Gnp Melatonin Maximum Str), 10 MG PO HS Paroxetine (Paxil), 20 MG PO HS Paroxetine (Paroxetine HCl), 40 MG PO QAM Promethazine Hcl (Phenergan), 12.5 MG PO Q6H Scheduled PRN Promethazine Hcl (Phenergan Suppository), 25 MG NM Q6H PRN for Nausea Allergies Coded Allergies: No Known Allergies (Unverified , 09/22/17) Physical Exam Vital Signs Date Time Temp Pulse Resp B/P (MAP) Pulse Ox O2 Delivery O2 Flow Rate FiO2 09/22/17 15:35 105 20 112/65 98 09/22/17 14:31 111 16 115/71 93 Room Air 09/22/17 13:09 112 16 106/75 94 Room Air 09/22/17 11:50 37.1 100 18 116/78 94 Room Air Physical Exam GENERAL: Awake, alert, well-appearing, NAD HENT: Normocephalic, atraumatic. EYES: Normal conjunctiva. Sclera non-icteric. NECK: Supple. No nuchal rigidity. FROM. RESPIRATORY: CTAB, no rhonchi, wheezing, crackles CARDIAC: RRR, no MRG ABDOMEN: Epigastric tenderness to palpitation. Soft, NTND, BS+ MSK: No chest wall TTP, no LE edema NEURO: GCS 15, CN 2-12 intact, moves all 4s on command SKIN: No rash or jaundice noted. Medical Decision & Procedures Laboratory Results Test 09/22/17 12:32 Urine Color DK YELLOW Urine Appearance CLEAR (CLEAR) Urine pH 6.0 (4.5-7.5) Urine Specific Orient 1.030 (1.000-1.030) Urine Protein 1+ (NEG) Urine Glucose (UA) NEG (NEG) Urine Ketones 1+ (NEG) Urine Occult Blood NEG (NEG) Urine Nitrite NEG (NEG) Urine Bilirubin NEG (NEG) Urine Urobilinogen POS (NEG) Urine Leukocyte Esterase NEG (NEG) Urine WBC (Auto) 5-10 /hpf (0-5) Urine RBC (Auto) 10-30 /hpf (0-4) Urine Hyaline Casts (Auto) 10-30 /lpf (0-5) Urine Epithelial Cells (Auto) >30 /lpf (0-5) Urine Bacteria (Auto) 1+ (NEG) Urine Renal Epithelial Cells /lpf (0-5) Urine Mucus PRESENT (NONE PRSENT) Urine Test NEG (NEG) Laboratory results reviewed by me Medications Administered Medications (Trade) Dose Ordered Sig/Ross Route Start Time Stop Time Status Last Admin Dose Admin Ondansetron HCl (Zofran Odt) 4 mg NOW STAT PO 09/22/17 12:06 09/22/17 12:07 DC 09/22/17 12:19 4 MG Famotidine (Pepcid Tab) 20 mg NOW ONCE PO 09/22/17 12:15 09/22/17 12:16 DC 09/22/17 12:19 20 MG Lidocaine HCl (Viscous Lidocaine 2% Soln) 20 ml STK-MED ONCE .ROUTE 09/22/17 12:16 09/22/17 12:17 DC 09/22/17 12:19 10 ML Al Hydroxide/Mg Hydroxide (Maalox Susp) 30 ml STK-MED ONCE .ROUTE 09/22/17 12:17 09/22/17 12:18 DC 09/22/17 12:19 30 ML Prochlorperazine Edisylate (Compazine Inj) 10 mg NOW STAT IM 09/22/17 12:58 09/22/17 12:59 DC 09/22/17 13:06 10 MG Diphenhydramine HCl (Benadryl Inj) 25 mg NOW STAT IM 09/22/17 12:58 09/22/17 12:59 DC 09/22/17 13:06 25 MG Cephalexin Monohydrate (Keflex Cap) 500 mg NOW ONCE PO 09/22/17 14:15 09/22/17 14:16 DC 09/22/17 14:30 500 MG ED Course 1214: The patient was evaluated in room C6. A complete history and physical exam was performed. 1258: Nursing staff informed me that the patient was vomiting. 1345: I reevaluated the patient who was resting comfortably. 1520: I reevaluated the patient. Discussed results and discharge instructions: She verbalized understanding and agreement. The patient is ready for discharge. Medical Decision The patient is a 27 year old female with a past medical history of anxiety and ovarian cysts who presents to the ED with a cc of nausea beginning 2 days ago. Differential diagnosis: Etiologies such as appendicitis, diverticulitis, PUD, biliary pathology, UTI, pancreatitis, obstruction, mesenteric ischemia, aortic pathology, infections, inflammatory bowel disease, renal colic, as well as others were entertained. Patient was seen and evaluated the bedside. Patient recently been seen earlier today with some similar complaints. Patient had described some nausea and vomiting. Patient did have blood work that was completed this time did have a white blood cell count of 11 did have some mild hypokalemia. Patient LFTs within normal limits. Patient did have some mild upper abdominal type pain. Patient was treated with medications. Patient initially did have one episode of vomiting but was subsequently treated with other medications. Patient felt improved thereafter. I did discuss with the patient that she likely may have a UTI and thus was given antibiotics which she was able tolerate. Patient was told to continue a bland soft diet. Patient was told to adequately hydrate with clear liquids and avoid things like alcohol, tobacco, caffeine, spicy, citrus foods. Patient's urine test was negative. She did not have a surgical abdomen and do not believe that she required any blood work or imaging at this time. Patient was deemed suitable for outpatient follow-up and treatment. Patient was given strict follow-up, discharge, and return precautions. All questions were answered. Patient was deemed suitable for outpatient follow-up at this time. Patient agreed with the plan of care and was safely discharged home. Medication Reconcilliation Current Medication List: was personally reviewed by me Blood Pressure Screening Patient's blood pressure: Normal blood pressure Blood pressure disposition: Did not require urgent referral Impression Primary Impression: Nausea, vomiting, and diarrhea Additional Impression: UTI (urinary tract infection) Scribe Attestation The scribe's documentation has been prepared under my direction and personally reviewed by me in its entirety. I confirm that the note above accurately reflects all work, treatment, procedures, and medical decision making performed by me. Departure Information Dispostion Home / Self-Care Prescriptions Cephalexin (KEFLEX) 500 Mg Cap 1 CAP PO BID for 7 Days, #14 CAP Prov: Onur Mercer M.D. 09/22/17 Promethazine Hcl (PHENERGAN SUPPOSITORY) 25 Mg Supp 25 MG NM Q6H Y for Nausea, #10 SUPP Prov: Onur Mercer M.D. 09/22/17 Promethazine Hcl (PHENERGAN) 12.5 Mg Tab 12.5 MG PO Q6H, #10 TAB Prov: Onur Mercer M.D. 09/22/17 Referrals No Doctor, Assigned (PCP) Forms HOME CARE DOCUMENTATION FORM, IMPORTANT VISIT INFORMATION Patient Instructions ED Nausea Vomiting, ED UTI Cystitis Female, My [facility] Additional Instructions Please return to the emergency department if you have worsening or recurrent symptoms not amenable to at-home treatment. Please call for a follow-up appointment with her primary care physician. Please take your medications as prescribed. If you have other concerns and/or complaints please feel free to also call your primary care physician's office or return the ED for further evaluation, management, and treatment. You may take tylenol 1000 mg every 6 hours as needed for pain. You may take motrin and tylenol separately or at the same time. Take your medications as prescribed. You have been examined and treated today on an emergency basis only. This is not a substitute for, or an effort to provide, complete comprehensive medical care. It is impossible to recognize and treat all injuries or illnesses in a single emergency department visit. It is therefore important that you follow up closely with [facility], your PCP, and/or your specialist(s). Call as soon as possible for an appointment. Thank you for your time and consideration. I look forward to speaking with you again soon. Please don't hesitate to call us if you have any questions. Problem Qualifiers Additional Impression: UTI (urinary tract infection) Urinary tract infection type: acute cystitis Hematuria presence: with hematuria Qualified Codes: N30.01 - Acute cystitis with hematuria
[2017-09-22] MEDS ORDERED: DiphenhydrAMINE HCL 50 MG/ML VIAL IM STA (12:58)
[2017-09-22] MEDS ORDERED: PROCHLORPERAZINE 5 MG/ML 2 ML VIAL IM STA (12:58)
[2017-09-22 13:10] LABS: URINE APPEARANCE CLEAR (CLEAR); URINE BILIRUBIN NEG (NEG); URINE COLOR DK YELLOW; URINE EPITHELIAL CELL AUTO >30 /lpf (0-5); URINE NITRITE NEG (NEG); UROBILINOGEN POS (NEG); ZZUR CULT IF INDIC CLEAN CATCH YES
[2017-09-22 13:16] LABS: MANUAL MICROSCOPIC REQUIRED? NO; REVIEW REQ? YES
[2017-09-22 13:28] LABS: URINE MUCUS PRESENT (NONE PRSENT)
[2017-09-22] MEDS ORDERED: CEPHALEXIN MONOHYDRATE 250 MG CAP PO ONE (14:15)
[2017-09-22] MEDS ORDERED: PROM12.529 PO (15:12)
[2017-09-22] MEDS ORDERED: CEPH-571 PO (15:12)
[2017-09-22] MEDS ORDERED: PROM25SU28 PR (15:12)
[2017-09-22 15:35] VITALS: BP 112/65; PULSE 105; O2SAT 98
[2017-09-28] MEDS ORDERED: LEVO-18 PO (10:41)
[2017-09-28] MEDS ORDERED: NICO14DI5 TD (10:41)
[2017-09-28] MEDS ORDERED: VNTHFA/IN INH (13:03)
[2017-09-28] MEDS ORDERED: ONDA4TAB65 PO (14:31)
== END 2017-09-22 15:37 | disposition home or self-care (01) ==
LOC: C.EDB 11:47 → C.EDC 15:37
DX: R11.2 Nausea with vomiting, unspecified (principal); R19.7 Diarrhea, unspecified; N30.01 Acute cystitis with hematuria; J18.9 Pneumonia, unspecified organism; F41.9 Anxiety disorder, unspecified; N83.201 Unspecified ovarian cyst, right side; F17.200 Nicotine dependence, unspecified, uncomplicated; F12.10 Cannabis abuse, uncomplicated

== ENCOUNTER 2017-09-26 12:27 | Inpatient (IN) | payer BC ==
[~2017-09-26] VITALS: Ht 157.5 cm; Wt 66.2 kg
[~2017-09-26 12:27] MED LIST changes: -ATR25 PO; +CEPH-571 PO; +PROM12.529 PO; +PROM25SU28 PR; -PRX/40 PO
[2017-09-26 12:30] VITALS: Ht 157.5 cm; Wt 66.2 kg
[2017-09-26] MEDS ORDERED: SODIUM CHLORIDE 0.9% 1000ML 1,000 ML IV STA ×2 (12:41→14:18)
[2017-09-26] MEDS ORDERED: ONDANSETRON INJ 2 MG/ML 2 ML VIAL IV STA (12:41)
--- NOTE | 2017-09-26 12:48 | EMERGENCY ROOM VISIT NOTE ---
History Report prepared by Dagoberto: Khari Jimenez Under the Supervision of: Dr. Khoa Dozier D.O. First contact with patient: 12:36 Chief Complaint: VOMITING Stated Complaint: NAUSEA, VOMITING, UTI Nursing Triage Summary: "I've been sick with Pnuemonia and a UTI for a week". reports was seen here, unable to get into PCP. c/o n/v/d unable to eat or drink. c/o lower pelvic/abd pain. "still coughing all the time" History of Present Illness The patient is a 27 year old female who presents to the Emergency Room with complaints of a persistent illness that started a week ago. Per the patient's , the patient was seen first at [facility] for the illness, and was told that she had pneumonia and was given a Z-pack. The patient states that later on that night she started vomiting consistently, and came here 2 separate times, and was given anti-nausea medications and was diagnosed with a UTI as well. The patient notes that she has been having abdominal pain. She adds that when she vomits, she gets some chest pain. The patient notes that she has been persistently coughing a lot, sometimes to the point of vomiting. She says that sometimes the vomiting is mostly due to the nausea. She says that she started having diarrhea last night. The patient denies any hematuria. She notes no chance of . The patient's notes that he first had a cold before the patient got sick. Source of History: patient, spouse/significant other Onset: A week ago Position: other (global - illness) Quality: other (diagnosed with PNA and UTI) Timing: other (persistent) Associated Symptoms: + cough, + chest pain, + nausea, + vomiting, + abdominal pain, + diarrhea, + urinary symptoms (denies hematuria) Note: No other associated symptoms noted. Review of Systems See HPI for pertinent positives & negatives. A total of 10 systems reviewed and were otherwise negative. Past Medical & Surgical Medical Problems: (1) Anxiety (2) Nausea, vomiting, and diarrhea (3) Ovarian cyst (4) Ovarian cyst, right Family History Anxiety disorder Social History Smoking Status: Current Every Day Smoker Alcohol Use: none Drug Use: marijuana Marital Status: single Housing Status: lives with significant other Occupation Status: employed Current/Historical Medications Scheduled Buspirone HCl (Buspirone HCl), 20 MG PO BID Clonazepam (Clonazepam), 0.5 MG PO HS Hydroxyzine HCl (Hydroxyzine HCl), 25 MG PO HS Melatonin (Gnp Melatonin Maximum Str), 10 MG PO HS Paroxetine (Paxil), 20 MG PO HS Paroxetine (Paroxetine HCl), 40 MG PO QAM Scheduled PRN Promethazine Hcl (Phenergan Suppository), 25 MG [place] Q6H PRN for Nausea Allergies Coded Allergies: No Known Allergies (Unverified , 09/26/17) Physical Exam Vital Signs Date Time Temp Pulse Resp B/P (MAP) Pulse Ox O2 Delivery O2 Flow Rate FiO2 09/26/17 14:30 101 18 122/76 97 Room Air 09/26/17 12:30 36.6 140 26 122/78 91 Room Air Physical Exam GENERAL: Patient is awake, alert, very anxious and uncomfortable appearing. EYES: The conjunctivae are clear. The pupils are round and reactive. EARS, NOSE, MOUTH AND THROAT: The nose is without any evidence of any deformity. Mucous membranes are dry tongue is midline NECK: The neck is nontender and supple. RESPIRATORY: Lung sounds were diminished throughout with scattered rhonchi. No tachypnea or conversational dyspnea noted. CARDIOVASCULAR: Heart sounds were tachycardic but regular. No definite murmur noted to auscultation. GASTROINTESTINAL: The abdomen is soft. Bowel sounds are present in all quadrants. Abdomen is nontender MUSCULOSKELETAL/EXTREMITIES: There is no evidence of gross deformity full range of motion is noted in the hips and shoulders SKIN: There is no obvious evidence of any rash. There are no petechiae, pallor or cyanosis noted. NEUROLOGIC: Patient is awake alert and oriented x3 strength is symmetric patellar reflexes are 2+ bilaterally Medical Decision & Procedures ER Provider Diagnostic Interpretation: X-ray results as stated below per interpretation by me and the radiologist. ABDOMEN 2VIEW W/PA CHEST RTN CLINICAL HISTORY: ABDOMINAL PAIN/GI pain COMPARISON STUDY: 07/30/2017 FINDINGS: Patchy parenchymal infiltrate left and to a lesser extent right base. Slight interstitial prominence throughout remaining hemithoraces. Nonobstructive bowel pattern. IMPRESSION: Mild left and to lesser extent right basilar parenchymal infiltrate. Negative abdomen. The above report was generated using voice recognition software. It may contain grammatical, syntax or spelling errors. Electronically signed by: Wes Coleman M.D. 09/26/2017 2:03 PM Dictated Date/Time: 09/26/2017 2:02 PM Laboratory Results 09/26/17 12:50 Red Blood Count 4.92, Mean Corpuscular Volume 86.4, Mean Corpuscular Hemoglobin 30.1, Mean Corpuscular Hemoglobin Concent 34.8, Mean Platelet Volume 9.6, Neutrophils (%) (Auto) 64.7, Lymphocytes (%) (Auto) 26.6, Monocytes (%) (Auto) 8.0, Eosinophils (%) (Auto) 0.2, Basophils (%) (Auto) 0.2, Neutrophils # (Auto) 7.83, Lymphocytes # (Auto) 3.22, Monocytes # (Auto) 0.97, Eosinophils # (Auto) 0.02, Basophils # (Auto) 0.02 09/26/17 12:50 Test 09/26/17 12:41 09/26/17 12:50 09/26/17 14:51 White Blood Count 12.10 K/uL (4.8-10.8) Red Blood Count 4.92 M/uL (4.2-5.4) Hemoglobin 14.8 g/dL (12.0-16.0) Hematocrit 42.5 % (37-47) Mean Corpuscular Volume 86.4 fL (80-100) Mean Corpuscular Hemoglobin 30.1 pg (25-34) Mean Corpuscular Hemoglobin Concent 34.8 g/dl (32-36) Platelet Count 268 K/uL (130-400) Mean Platelet Volume 9.6 fL (7.4-10.4) Neutrophils (%) (Auto) 64.7 % Lymphocytes (%) (Auto) 26.6 % Monocytes (%) (Auto) 8.0 % Eosinophils (%) (Auto) 0.2 % Basophils (%) (Auto) 0.2 % Neutrophils # (Auto) 7.83 K/uL (1.4-6.5) Lymphocytes # (Auto) 3.22 K/uL (1.2-3.4) Monocytes # (Auto) 0.97 K/uL (0.11-0.59) Eosinophils # (Auto) 0.02 K/uL (0-0.5) Basophils # (Auto) 0.02 K/uL (0-0.2) RDW Standard Deviation 41.3 fL (36.4-46.3) RDW Coefficient of Variation 13.1 % (11.5-14.5) Immature Granulocyte % (Auto) 0.3 % Immature Granulocyte # (Auto) 0.04 K/uL (0.00-0.02) Anion Gap 9.0 mmol/L (3-11) Est Creatinine Clear Calc Drug Dose 96.0 ml/min Estimated GFR () 118.8 Estimated GFR (Non- 102.5 BUN/Creatinine Ratio 13.9 (10-20) Calcium Level 9.4 mg/dl (8.5-10.1) Magnesium Level 2.2 mg/dl (1.8-2.4) Total Bilirubin 1.3 mg/dl (0.2-1) Direct Bilirubin 0.3 mg/dl (0-0.2) Aspartate Amino Transf (AST/SGOT) 21 U/L (15-37) Alanine Aminotransferase (ALT/SGPT) 29 U/L (12-78) Alkaline Phosphatase 90 U/L (45-117) Total Protein 8.4 gm/dl (6.4-8.2) Albumin 3.5 gm/dl (3.4-5.0) Lipase 95 U/L (73-393) Human Chorionic Gonadotropin, Qual NEG (NEG) Bedside Lactic Acid Venous 1.42 mmol/L (0.90-1.70) Medications Administered Medications (Trade) Dose Ordered Sig/Ross Route Start Time Stop Time Status Last Admin Dose Admin Sodium Chloride 1,000 ml @ 999 mls/hr Q1H1M STAT IV 09/26/17 12:41 09/26/17 13:41 DC 09/26/17 12:57 999 MLS/HR Ondansetron HCl (Zofran Inj) 4 mg NOW STAT IV 09/26/17 12:41 09/26/17 12:43 DC 09/26/17 12:57 4 MG Albuterol/ Ipratropium (Duoneb) 3 ml NOW STAT INH 09/26/17 13:02 09/26/17 13:03 DC 09/26/17 13:23 3 ML Promethazine HCl 12.5 mg/Sodium Chloride 50.5 ml @ 204 mls/hr NOW STAT IV 09/26/17 13:34 09/26/17 13:48 DC 12/31/17 14:00 204 MLS/HR Levofloxacin (Levaquin / D5W) 750 mg NOW ONCE IV 09/26/17 14:15 09/26/17 14:16 DC 09/26/17 14:57 750 MG Sodium Chloride 1,000 ml @ 999 mls/hr Q1H1M STAT IV 09/26/17 14:18 09/26/17 15:18 DC 09/26/17 15:11 999 MLS/HR ED Course 1240: The patient was evaluated in room B4B. A complete history and physical examination were performed. 1241: Ordered Zofran Inj 4 mg IV, NSS 1000 ml @ 999 mls/hr IV. 1302: Ordered Duoneb 3 ml INH. 1334: Ordered Promethazine HCl 12.5 mg/Sodium Chloride 50.5 ml @ 204 mls/hr IV. 1415: Ordered Levaquin / D5W 750 mg IV. 1420: Upon reevaluation, the patient is resting comfortably. I discussed results and treatment plan with her. She verbalizes agreement and understanding. The patient will be evaluated for further management and care. 1423: I discussed the patient's case with Dr. Peyton Beltran plow and boring machine tender. The patient will be evaluated for further management. Medical Decision Differential diagnosis: Etiologies such as gastroenteritis, food borne illness, infections, appendicitis , diverticulitis, inflammatory bowel disease, obstruction, GI bleed, biliary pathology, as well as others were entertained. Nursing notes reviewed. The patient is a 27-year-old female who presented to the emergency department for an evaluation of nausea vomiting. The patient has had upper rest her symptoms including cough started having nausea and vomiting to the point where she is unable to keep down any medication and cannot tolerate the antibiotic. The patient was treated with IV fluids and IV antiemetics. She was found have pneumonia on chest x-ray. She was started on IV antibiotics. I discussed the patient's laboratory and radiographic studies with her. Because of her ongoing symptoms I discussed his case with the on-call [facility] hospitalist. They've agreed to evaluate the patient in the emergency department for further management and disposition. Medication Reconcilliation Current Medication List: was personally reviewed by me Blood Pressure Screening Patient's blood pressure: Normal blood pressure Consults Time Called: 1428 Consulting Physician: Dr. Peyton Beltran plow and boring machine tender Returned Call: [phone] I discussed the patient's case with Dr. Peyton Beltran plow and boring machine tender. The patient will be evaluated for further management. Impression Primary Impression: Bilateral pneumonia Additional Impressions: Nausea & vomiting Dehydration Scribe Attestation The scribe's documentation has been prepared under my direction and personally reviewed by me in its entirety. I confirm that the note above accurately reflects all work, treatment, procedures, and medical decision making performed by me. Departure Information Dispostion Being Evaluated By Hospitalist Referrals Inna Dill D.O. (PCP) Patient Instructions My [facility] Problem Qualifiers Primary Impression: Bilateral pneumonia Pneumonia type: due to unspecified organism Lung location: lower lobe of lung Qualified Codes: J18.9 - Pneumonia, unspecified organism Additional Impressions: Nausea & vomiting Vomiting type: unspecified Vomiting Intractability: intractable Qualified Codes: R11.2 - Nausea with vomiting, unspecified
[2017-09-26] MEDS ORDERED: ALBUT/IPRATROP 3MG/0.5MG NEB 3 ML VIAL INH STA (13:02)
[2017-09-26 13:13] LABS: BASO % 0.2 %; BASO ABS # 0.02 K/uL (0-0.2); EOS % 0.2 %; EOS ABS # 0.02 K/uL (0-0.5); HEMATOCRIT 42.5 % (37-47); HEMOGLOBIN 14.8 g/dL (12.0-16.0); IG# 0.04 K/uL (0.00-0.02); LYMPH % 26.6 %; LYMPH ABS # 3.22 K/uL (1.2-3.4); MEAN CELL VOLUME 86.4 fL (80-100); MEAN CORPUSCULAR HEMOGLOBIN 30.1 pg (25-34); MEAN CORPUSCULAR HGB CONC 34.8 g/dl (32-36); MEAN PLATELET VOLUME 9.6 fL (7.4-10.4); MONO ABS # 0.97 K/uL (0.11-0.59); NEUT % 64.7 %; NEUT ABS # 7.83 K/uL (1.4-6.5); PLATELET COUNT 268 K/uL (130-400); RED CELL DISTRIBUTION WIDTH CV 13.1 % (11.5-14.5); RED CELL DISTRIBUTION WIDTH SD 41.3 fL (36.4-46.3)
[2017-09-26] MEDS ORDERED: PROMETHAZINE HCL INJ 12.5 MG in SODIUM CHLORIDE 0.9% 50ML 50 ML IV STA (13:34)
[2017-09-26 13:35] LABS: ALBUMIN 3.5 gm/dl (3.4-5.0); CALCIUM 9.4 mg/dl (8.5-10.1); CREATININE 0.8 mg/dl (0.60-1.20); POTASSIUM 3.5 mmol/L (3.5-5.1); TOTAL PROTEIN 8.4 gm/dl (6.4-8.2)
--- NOTE | 2017-09-26 14:04 | DIAGNOSTIC IMAGING REPORT ---
ABDOMEN 2VIEW W/PA CHEST RTN CLINICAL HISTORY: ABDOMINAL PAIN/GI pain COMPARISON STUDY: 07/30/2017 FINDINGS: Patchy parenchymal infiltrate left and to a lesser extent right base. Slight interstitial prominence throughout remaining hemithoraces. Nonobstructive bowel pattern. IMPRESSION: Mild left and to lesser extent right basilar parenchymal infiltrate. Negative abdomen. The above report was generated using voice recognition software. It may contain grammatical, syntax or spelling errors. Electronically signed by: Wes Coleman M.D. 09/26/2017 2:03 PM Dictated Date/Time: 09/26/2017 2:02 PM
[2017-09-26] MEDS ORDERED: LEVAQUIN 750MG / 150ML D5W IV ONE (14:15)
[2017-09-26] MEDS ORDERED: MoRPHine SULFATE 4 MG/ML 1 ML CARP\\VIAL IV PRN (15:45)
[2017-09-26] MEDS ORDERED: LORAZEPAM 2 MG/ML 1 ML VIAL IV STA (15:54)
[2017-09-26] MEDS ORDERED: KETOROLAC TROMETHAMINE 15 MG/ML VIAL IV PRN (16:00)
[2017-09-26] MEDS ORDERED: ALUMINUM/MAGNESIUM/SIMETH (MAALOX MAX) 30 ML UDC PO PRN (16:00)
[2017-09-26] MEDS ORDERED: ACETAMINOPHEN 325 MG TAB PO PRN (16:00)
[2017-09-26] MEDS ORDERED: PROMETHAZINE HCL INJ 12.5 MG in SODIUM CHLORIDE 0.9% 50ML 50 ML IV PRN (16:00)
[2017-09-26] MEDS ORDERED: KETOROLAC TROMETHAMINE 30 MG/ML VIAL ONE (16:10)
[2017-09-26 17:30] VITALS: BP 111/75; PULSE 102; TEMP 36.6; O2SAT 96
--- NOTE | 2017-09-26 17:30 | NUR ---
A: Pt transferred to [facility], SO at bedside, oriented both to room and call landers system. Pt a/o x 4, very anxious, VSS on RA. Supervision assist. Denies pain, N/V, SOB, c/o of PARK. Moist non productive cough noted. Code word/fall agreement signed. Denies further needs at this time. Call landers and bedside table in reach, bed in lowest position. Continue to monitor.
[2017-09-26 17:32] VITALS: O2SAT 96
[2017-09-26] MEDS ORDERED: INFLUENZA ADMINISTRATION CHARGE ONE (18:30)
[2017-09-26] MEDS ORDERED: INFLUENZA VIRUS QUAD VACCINE 0.5 ML SYR IM. ONE (18:30)
--- NOTE | 2017-09-26 19:41 | HISTORY & PHYSICAL EXAMINATION ---
DATE OF ADMISSION: 09/26/2017 PRIMARY CARE PHYSICIAN: Dr. Pete. CHIEF COMPLAINT: Nausea, vomiting, shortness of breath, cough for the last 1 week or so. HISTORY OF PRESENT COMPLAINT: She is a 27-year-old female with significant past medical history of panic disorders. Apparently, has been complaining of nausea and vomiting for about 1 week. She was seen in the urgent care center on Wednesday with similar symptoms and she was diagnosed to have pneumonia and she was given Z-Madhu. The condition did not improve and she came to the Emergency Room the next morning and she was told that she may have UTI and was given Keflex. She took Z-Madhu and Keflex, but could not able to keep anything down. She continues to have nausea and vomiting and has had some diarrhea as well and also continued to have cough with productive of yellowish phlegm. Her pain at the lower back increased at the same time. She is here today with similar complaints. Her blood count noted to be abnormal for white blood count of 12.10. Her x-ray of the abdomen and chest did show bibasilar infiltration. From that point, she was advised admission. Her UA examination is still pending. She denies to have any other symptoms at this time. Does have abdominal discomfort, but no more nausea. Denies to have any urinary symptoms and no more diarrhea. Does not have any numbness or tingling in the extremities and no complaints of any rash or any increasing shortness of breath. PAST MEDICAL HISTORY: Only significant for panic disorder and noted in the chart to have abdominal pain. PAST SURGICAL HISTORY: Minor hand surgery in the past. FAMILY HISTORY: Significant for father has altered mental disorder and has diabetes. SOCIAL HISTORY: She is single. She smokes about 1-pack per day for the last 7 years. She uses alcohol occasionally, and she has been ambulant. ALLERGIES: NKDA. MEDICATIONS: She has been on Klonopin 0.5 mg at night, buspirone 20 mg tablet b.i.d., hydroxyzine 25 mg at night, melatonin 5 mg at night, paroxetine 40 mg in the morning and 20 mg at night. REVIEW OF SYSTEMS: Other systems reviewed are unremarkable except those mentioned in the history of present complaint. PHYSICAL EXAMINATION: GENERAL: On examination in the Emergency Room, she was very anxious. VITAL SIGNS: Temperature 36.6, pulse was 101, blood pressure 122/76, and saturation 97% on room air. HEENT: Unremarkable. NECK: Supple. No JVD. No bruit. CHEST: Bibasilar crackles. HEART: S1, S2 regular. ABDOMEN: Soft, benign, tender all over, but no distension. No organomegaly. No rebound. Bowel sounds present. EXTREMITIES: Negative. MUSCULOSKELETAL: Examination of the musculoskeletal system did not show any acute arthritis involving any joint. CENTRAL NERVOUS SYSTEM: She is alert, awake, oriented x3. No focal sensory and/or motor deficit appreciated. LABORATORY DATA: Labs noted today, white count was 12.10, H&H 14.8/42.5, and platelet was 268. Sodium 138, potassium 3.5, chloride 105, carbon dioxide 24, BUN 11, creatinine of 0.80. Random glucose 89. Lactic acid 1.42. Bilirubin slightly high, may be significant distress. HCG negative. UA examination pending. IMAGING STUDIES: X-ray of the abdomen and pelvis did show basilar parenchymal infiltrate. IMPRESSION AND PLAN: 1. Bibasilar pneumonia with ongoing symptoms of cough and respiratory symptoms for more than a week, status post failed outpatient antibiotic treatment. The patient will be admitted to medical floor. She was started with Levaquin and we will continue with that. 2. May have urinary tract infection, we still have not got the urinalysis back yet. We will send urine for culture, but Levaquin will cover urinary tract infection as well. 3. Panic disorder. She has been taking antidepressant and anxiety medications. Continue with those. She received 1 mg of Ativan in the Emergency Room. 4. Gastrointestinal prophylaxis with Maalox and Mylanta as needed. 5. Deep venous thrombosis prophylaxis. She is very low risk for thrombolysis. She will be given SCDs lying in bed. 6. Code status, she will be full code. In my clinical assessment, the beneficiary meets criteria as per CMS for 2 midnight stay in the hospital. FRANCISCO
[2017-09-26] MEDS: ONDANSETRON INJ 2 MG/ML 2 ML VIAL IV PRN (19:55)
[2017-09-26] MEDS ORDERED: BUSPIRONE HCL 20 MG PO SCH (20:00)
[2017-09-26 20:30] VITALS: O2SAT 96
[2017-09-26] MEDS: hydrOXYzine HCL 25 MG TAB PO SCH (20:59)
[2017-09-26] MEDS ORDERED: MELATONIN 10 MG PO SCH (21:00)
[2017-09-26] MEDS: PAROXETINE 20 MG TAB PO SCH (21:00)
[2017-09-26] MEDS: CLONAZEPAM 0.5 MG TAB PO SCH (21:01)
[2017-09-26] MEDS: BUSPIRONE PO SCH ×2 (21:02)
[2017-09-26 23:27] VITALS: BP 103/67; PULSE 80; TEMP 36.7; O2SAT 92
[2017-09-27 00:47] VITALS: O2SAT 96
[2017-09-27 07:13] VITALS: BP 102/69; PULSE 83; TEMP 36.7; O2SAT 98
[2017-09-27] MEDS: BUSPIRONE PO SCH ×4 (09:19→21:48)
[2017-09-27] MEDS: PAROXETINE 20 MG TAB PO SCH ×2 (09:19→21:48)
[2017-09-27] MEDS ORDERED: NICOTINE 14 MG/24 HR TDSY TD PRN (09:30)
--- NOTE | 2017-09-27 10:19 | Progress Note ---
Medicine Progress Note Date & Time of Visit: Sep 27, 2017 at 09:19. Subjective 27 yo F with pneumonia and UTI presents with nausea and vomiting with intolerance to PO. She feels improved overnight and tolerated a small amount of breakfast this morning She feels improved from a symptom and breathing standpoint overall. Mom is present at the bedside. Objective Last 8 Hrs Date Time Temp Pulse Resp B/P (MAP) Pulse Ox O2 Delivery O2 Flow Rate FiO2 09/27/17 07:13 36.7 83 18 102/69 (80) 98 Room Air Physical Exam: GEN: WNWD, in no acute distress, alert and appropriate HEENT: NC/AT, normal sclerae, MMM CARDIO: reg rate, S1/2 heard without m/g/r LUNGS: CTA bilaterally, crackles at the R lung base, no rales or wheezes, good diaphragmatic excursion ABD: soft, non-tender, non-distended, no rebound or guarding, +BS EXTREMITY: RP and DP palpable 2+ bilat, no LE swelling or edema, extremities are warm and well-perfused NEURO: CN 2-12 grossly intact MUSC: 5/5 strength throughout, no focal deficits SKIN: warm and dry Laboratory Results: 09/26/17 12:50 Red Blood Count 4.92, Mean Corpuscular Volume 86.4, Mean Corpuscular Hemoglobin 30.1, Mean Corpuscular Hemoglobin Concent 34.8, Mean Platelet Volume 9.6, Neutrophils (%) (Auto) 64.7, Lymphocytes (%) (Auto) 26.6, Monocytes (%) (Auto) 8.0, Eosinophils (%) (Auto) 0.2, Basophils (%) (Auto) 0.2, Neutrophils # (Auto) 7.83, Lymphocytes # (Auto) 3.22, Monocytes # (Auto) 0.97, Eosinophils # (Auto) 0.02, Basophils # (Auto) 0.02 09/26/17 12:50 Test 09/26/17 12:50 09/26/17 14:51 09/27/17 09:20 White Blood Count 12.10 K/uL (4.8-10.8) Red Blood Count 4.92 M/uL (4.2-5.4) Hemoglobin 14.8 g/dL (12.0-16.0) Hematocrit 42.5 % (37-47) Mean Corpuscular Volume 86.4 fL (80-100) Mean Corpuscular Hemoglobin 30.1 pg (25-34) Mean Corpuscular Hemoglobin Concent 34.8 g/dl (32-36) Platelet Count 268 K/uL (130-400) Mean Platelet Volume 9.6 fL (7.4-10.4) Neutrophils (%) (Auto) 64.7 % Lymphocytes (%) (Auto) 26.6 % Monocytes (%) (Auto) 8.0 % Eosinophils (%) (Auto) 0.2 % Basophils (%) (Auto) 0.2 % Neutrophils # (Auto) 7.83 K/uL (1.4-6.5) Lymphocytes # (Auto) 3.22 K/uL (1.2-3.4) Monocytes # (Auto) 0.97 K/uL (0.11-0.59) Eosinophils # (Auto) 0.02 K/uL (0-0.5) Basophils # (Auto) 0.02 K/uL (0-0.2) RDW Standard Deviation 41.3 fL (36.4-46.3) RDW Coefficient of Variation 13.1 % (11.5-14.5) Immature Granulocyte % (Auto) 0.3 % Immature Granulocyte # (Auto) 0.04 K/uL (0.00-0.02) Anion Gap 9.0 mmol/L (3-11) Est Creatinine Clear Calc Drug Dose 96.0 ml/min Estimated GFR () 118.8 Estimated GFR (Non- 102.5 BUN/Creatinine Ratio 13.9 (10-20) Calcium Level 9.4 mg/dl (8.5-10.1) Magnesium Level 2.2 mg/dl (1.8-2.4) Total Bilirubin 1.3 mg/dl (0.2-1) Direct Bilirubin 0.3 mg/dl (0-0.2) Aspartate Amino Transf (AST/SGOT) 21 U/L (15-37) Alanine Aminotransferase (ALT/SGPT) 29 U/L (12-78) Alkaline Phosphatase 90 U/L (45-117) Total Protein 8.4 gm/dl (6.4-8.2) Albumin 3.5 gm/dl (3.4-5.0) Lipase 95 U/L (73-393) Human Chorionic Gonadotropin, Qual NEG (NEG) Bedside Lactic Acid Venous 1.42 mmol/L (0.90-1.70) Date/Time Source Procedure Growth Status 09/26/17 14:43 Blood Blood Culture Pending Received Last 24 Hours Test 09/26/17 12:50 09/26/17 14:51 White Blood Count 12.10 K/uL Red Blood Count 4.92 M/uL Hemoglobin 14.8 g/dL Hematocrit 42.5 % Mean Corpuscular Volume 86.4 fL Mean Corpuscular Hemoglobin 30.1 pg Mean Corpuscular Hemoglobin Concent 34.8 g/dl Platelet Count 268 K/uL Mean Platelet Volume 9.6 fL Neutrophils (%) (Auto) 64.7 % Lymphocytes (%) (Auto) 26.6 % Monocytes (%) (Auto) 8.0 % Eosinophils (%) (Auto) 0.2 % Basophils (%) (Auto) 0.2 % Neutrophils # (Auto) 7.83 K/uL Lymphocytes # (Auto) 3.22 K/uL Monocytes # (Auto) 0.97 K/uL Eosinophils # (Auto) 0.02 K/uL Basophils # (Auto) 0.02 K/uL RDW Standard Deviation 41.3 fL RDW Coefficient of Variation 13.1 % Immature Granulocyte % (Auto) 0.3 % Immature Granulocyte # (Auto) 0.04 K/uL Sodium Level 138 mmol/L Potassium Level 3.5 mmol/L Chloride Level 105 mmol/L Carbon Dioxide Level 24 mmol/L Anion Gap 9.0 mmol/L Blood Urea Nitrogen 11 mg/dl Creatinine 0.80 mg/dl Est Creatinine Clear Calc Drug Dose 96.0 ml/min Estimated GFR () 118.8 Estimated GFR (Non- 102.5 BUN/Creatinine Ratio 13.9 Random Glucose 89 mg/dl Calcium Level 9.4 mg/dl Magnesium Level 2.2 mg/dl Total Bilirubin 1.3 mg/dl Direct Bilirubin 0.3 mg/dl Aspartate Amino Transf (AST/SGOT) 21 U/L Alanine Aminotransferase (ALT/SGPT) 29 U/L Alkaline Phosphatase 90 U/L Total Protein 8.4 gm/dl Albumin 3.5 gm/dl Lipase 95 U/L Human Chorionic Gonadotropin, Qual NEG Bedside Lactic Acid Venous 1.42 mmol/L Date/Time Source Procedure Growth Status 09/26/17 14:43 Blood Blood Culture Pending Received 09/26/17 14:37 Blood Blood Culture Pending Received Assessment & Plan 27 yo F with pneumonia and UTI presents with nausea and vomiting with intolerance to PO. She feels improved overnight and tolerated a small amount of breakfast this morning She feels improved from a symptom and breathing standpoint overall. Mom is present at the bedside. 1. CAP-bibasilar, blood cultures pending, pt afebrile and off oxygen. Cont Levaquin. Flu screen pending. 2. Asymptomatic bacteriuria-1+ bacteria on UA in ER a few days ago but culture showed mixed brendan. Pt asymptomatic, not a UTI. 3. Panic disorder. Appears anxious this morning with bouts of crying. Reports that she takes Ativan PO q6hrs and clonazpam at night because it is longer acting. Buspar. Mother and aunt at bedside. DVT proph-SCDs Full Code Dispo-likely home tomorrow. Zulay Huang DO [facility] Hospitalist Current Inpatient Medications: Current Inpatient Medications Medications (Trade) Dose Ordered Sig/Ross Route Start Time Stop Time Status Last Admin Dose Admin Ketorolac Tromethamine (Toradol Inj) 15 mg Q6H PRN IV 09/26/17 16:00 10/01/17 15:59 Acetaminophen (Tylenol Tab) 650 mg Q4H PRN PO 09/26/17 16:00 10/26/17 15:59 Ondansetron HCl (Zofran Inj) 4 mg Q6H PRN IV 09/26/17 16:00 10/26/17 15:59 09/26/17 19:55 4 MG Clonazepam (Klonopin Tab) 0.5 mg HS PO 09/26/17 21:00 10/26/17 20:59 09/26/17 21:01 0.5 MG Hydroxyzine HCl (Vistaril Tab) 25 mg HS PO 09/26/17 21:00 10/26/17 20:59 09/26/17 20:59 25 MG Paroxetine HCl (pAXil TAB) 20 mg HS PO 09/26/17 21:00 10/26/17 20:59 09/26/17 21:00 20 MG Paroxetine HCl (pAXil TAB) 40 mg QAM PO 09/27/17 08:00 10/27/17 08:59 Promethazine HCl 12.5 mg/Sodium Chloride 50.5 ml @ 204 mls/hr Q6H PRN IV 09/26/17 16:00 10/26/17 15:59 09/26/17 20:57 204 MLS/HR Al Hydrox/Mg Hydrox/Simethicone (Maalox Max Susp) 15 ml Q6H PRN PO 09/26/17 16:00 10/26/17 15:59 Levofloxacin 500 mg/Prmx 100 ml @ 100 mls/hr Q24H IV 09/27/17 15:00 10/03/17 14:59 Buspirone HCl (BusPAR TAB/ Buspar Tab) 20 mg BID PO 09/26/17 20:00 10/26/17 20:59 09/26/17 21:02 20 MG
[2017-09-27 10:20] LABS: INFLUENZA A PCR Neg for Influ A (NEG); INFLUENZA B PCR Neg for Influ B (NEG)
[2017-09-27] MEDS: LORAZEPAM 0.5 MG TAB PO PRN ×2 (10:48→18:31)
--- NOTE | 2017-09-27 10:58 | NUR ---
ID note: Pt. resting in bed. NPC noted this am. Lungs clear. No c/o SOB. Medicated for c/o anxiety. she plans to go home upon discharge. discharge is unknown at this time. Call landers within reach.
[2017-09-27] MEDS: ONDANSETRON INJ 2 MG/ML 2 ML VIAL IV PRN (14:39)
[2017-09-27] MEDS ORDERED: LEVOFLOXACIN / D5W 500 MG in PREMIXED IN D5W 100 ML IV SCH (15:00)
[2017-09-27 15:32] VITALS: BP 114/79; PULSE 113; TEMP 37; O2SAT 96
[2017-09-27 16:00] VITALS: O2SAT 96
[2017-09-27] MEDS: CLONAZEPAM 0.5 MG TAB PO SCH (21:56)
[2017-09-27] MEDS: hydrOXYzine HCL 25 MG TAB PO SCH (23:16)
[2017-09-27 23:37] VITALS: BP 107/75; PULSE 79; TEMP 36.8; O2SAT 97
[2017-09-28 07:24] VITALS: BP 131/88; PULSE 77; TEMP 36.8; O2SAT 99
[2017-09-28] MEDS: BUSPIRONE PO SCH ×2 (08:15)
[2017-09-28] MEDS: PAROXETINE 20 MG TAB PO SCH (08:15)
[2017-09-28] MEDS ORDERED: NICO14DI5 TD (10:41)
[2017-09-28] MEDS ORDERED: LEVO-18 PO (10:41)
[2017-09-28 10:51] VITALS: BP 131/88; PULSE 77; TEMP 36.8; O2SAT 99
[2017-09-28] MEDS ORDERED: NURSING VERBAL MED ORDER ONE (12:15)
[2017-09-28] MEDS ORDERED: PNEUMOCOCCAL ADMINISTRATION CHARGE ONE (12:15)
[2017-09-28] MEDS ORDERED: PNEUMOCOCCAL POLYSACCHARIDES 25 MCG/0.5 ML VIAL/SYR IM. ONE (12:15)
[2017-09-28] MEDS ORDERED: VNTHFA/IN INH (13:03)
--- NOTE | 2017-09-28 13:03 | Discharge Instructions ---
Discharge Instructions Date of Service Sep 28, 2017. Admission Reason for Admission: Bilateral Pneumonia Discharge Discharge Diagnosis / Problem: bilateral pneumonia Discharge Goals Goal(s): Prevent Disease Progression Activity Recommendations Activity Limitations: per Instructions/Follow-up section . Instructions / Follow-Up Instructions / Follow-Up Please take all medications as instructed. You have no activity, driving or other restrictions, but take it easy for the next week. It is very important to quit smoking. Please cont to work with Dr. Dill on nicotine replacement if needed or classes in the area. The decal cutter here at [facility] is Lauren Rodriguez, and she can get you set up in a class if you would like something like that. You have an appointment with Dr. Dill on 10/04 @ 9:25am for follow-up from this hospitalization. It was a pleasure taking care of you! Call if you have any questions or problems. You can reach a [facility] hospitalist on duty at [facility] 24 hours a day by calling [phone]. Take care of yourself. Zulay Huang DO [facility] Hospitalist Current Hospital Diet Patient's current hospital diet: Regular Diet Discharge Diet Recommended Diet: Regular Diet Procedures Procedures Performed: None Pending Studies Studies pending at discharge: yes List of pending studies: Blood cultures-final reading was pending but had prelimiary reading of negative. Medical Emergencies . Who to Call and When: Medical Emergencies: If at any time you feel your situation is an emergency, please call 911 immediately. . Non-Emergent Contact Non-Emergency issues call your: Primary Care Provider . . "Provider Documentation" section prepared by Zulay Huang. . VTE Core Measure Inpt VTE Proph given/why not?: Treatment not indicated
--- NOTE | 2017-09-28 13:09 | Discharge Summary ---
Discharge Summary Date of Service Sep 28, 2017. Discharge Summary Admission Date: Sep 26, 2017 at 15:59 Discharge Date: Sep 28, 2017 Discharge Disposition: Home Principal Diagnosis: Community-acquired pneumonia Smoking Panic disorder Procedures: None. Vaccinations: Pneumonia Consultations: None. Pending Studies/Follow-Up: see instructions below Medication Reconciliation New Medications: Albuterol Hfa (Ventolin Hfa) 200 Puffs/02829 Mcg Aers 2-4 PUFFS INH Q6H PRN for sob/wheezing for 30 Days, #1 INHALER Levofloxacin (Levaquin) 750 Mg Tab 750 MG PO DAILY for 7 Days, #7 TAB Ondansetron Hcl (Zofran) 4 Mg Tab 4 MG PO Q8H PRN for nausea/vomiting for 7 Days, #15 TAB Nicotine (Nicoderm Cq 14MG Patch) 14 Mg/24 Hr Dis 1 PATCH TD Q24H PRN for cravings to smoke for 15 Days, #15 PATCH Continued Medications: Buspirone HCl (Buspirone HCl) 10 Mg Tab 20 MG PO BID Clonazepam (Clonazepam) 0.5 Mg Tab 0.5 MG PO HS Hydroxyzine HCl (Hydroxyzine HCl) 25 Mg Tab 25 MG PO HS Melatonin (Gnp Melatonin Maximum Str) 5 Mg Tab 10 MG PO HS Paroxetine (Paxil) 20 Mg Tab 20 MG PO HS Paroxetine (Paroxetine HCl) 40 Mg Tab 40 MG PO QAM Promethazine Hcl (Phenergan Suppository) 25 Mg Supp 25 MG AR Q6H PRN for Nausea, #10 SUPP Admission Information HPI (per Admitting provider): HISTORY OF PRESENT COMPLAINT: She is a 27-year-old female with significant past medical history of panic disorders. Apparently, has been complaining of nausea and vomiting for about 1 week. She was seen in the urgent care center on Wednesday with similar symptoms and she was diagnosed to have pneumonia and she was given Z-Madhu. The condition did not improve and she came to the Emergency Room the next morning and she was told that she may have UTI and was given Keflex. She took Z-Madhu and Keflex, but could not able to keep anything down. She continues to have nausea and vomiting and has had some diarrhea as well and also continued to have cough with productive of yellowish phlegm. Her pain at the lower back increased at the same time. She is here today with similar complaints. Her blood count noted to be abnormal for white blood count of 12.10. Her x-ray of the abdomen and chest did show bibasilar infiltration. From that point, she was advised admission. Her UA examination is still pending. She denies to have any other symptoms at this time. Does have abdominal discomfort, but no more nausea. Denies to have any urinary symptoms and no more diarrhea. Does not have any numbness or tingling in the extremities and no complaints of any rash or any increasing shortness of breath. Physical Exam (per Admitting): PHYSICAL EXAMINATION: GENERAL: On examination in the Emergency Room, she was very anxious. VITAL SIGNS: Temperature 36.6, pulse was 101, blood pressure 122/76, and saturation 97% on room air. HEENT: Unremarkable. NECK: Supple. No JVD. No bruit. CHEST: Bibasilar crackles. HEART: S1, S2 regular. ABDOMEN: Soft, benign, tender all over, but no distension. No organomegaly. No rebound. Bowel sounds present. EXTREMITIES: Negative. MUSCULOSKELETAL: Examination of the musculoskeletal system did not show any acute arthritis involving any joint. CENTRAL NERVOUS SYSTEM: She is alert, awake, oriented x3. No focal sensory and/or motor deficit appreciated. Hospital Course 27 yo F with pneumonia and UTI presents with nausea and vomiting with intolerance to PO. She feels improved overnight and tolerated a small amount of breakfast on HD 2. She continued to improve with minimal coughing and no supplemental oxygen required throughout her hospitalization. On discharge her rales were more prominent at the bases although she overall appeared clinically improved and felt fine to go home. She was given an albuterol inhaler as needed. She was also advised that continuing to smoke cigarettes will impair her ability to clear secretions and she was given a nicoderm patch on discharge , also. She also received a pneumonia vaccine prior to discharge. She was discharged in stable condition with close PCP follow-up within one week. Total time spent on discharge = 60 minutes This includes examination of the patient, discharge planning, medication reconciliation, and communication with other providers. Discharge Instructions [facility] [address] [place] [address] Discharge Medical Patient Name: eNgra Alvares Unit Number: [id number] Date of : 1990 Patient Status: Admitted Inpatient Attending Doctor: Zulay Huang DO DI: Medical v4 Discharge Instructions Date of Service Sep 28, 2017. Admission Reason for Admission: Bilateral Pneumonia Discharge Discharge Diagnosis / Problem: bilateral pneumonia Discharge Goals Goal(s): Prevent Disease Progression Activity Recommendations Activity Limitations: per Instructions/Follow-up section . Instructions / Follow-Up Instructions / Follow-Up Please take all medications as instructed. You have no activity, driving or other restrictions, but take it easy for the next week. It is very important to quit smoking. Please cont to work with Dr. Dill on nicotine replacement if needed or classes in the area. The cardiographer here at [facility] is Lauren Rodriguez, and she can get you set up in a class if you would like something like that. You have an appointment with Dr. Dill on 10/04 @ 9:25am for follow-up from this hospitalization. It was a pleasure taking care of you! Call if you have any questions or problems. You can reach a [facility] hospitalist on duty at [facility] 24 hours a day by calling [phone]. Take care of yourself. Zulay Huang DO [facility] Hospitalist Current Hospital Diet Patient's current hospital diet: Regular Diet Discharge Diet Recommended Diet: Regular Diet Procedures Procedures Performed: None Pending Studies Studies pending at discharge: yes List of pending studies: Blood cultures-final reading was pending but had prelimiary reading of negative. Medical Emergencies . Who to Call and When: Medical Emergencies: If at any time you feel your situation is an emergency, please call 911 immediately. . Non-Emergent Contact Non-Emergency issues call your: Primary Care Provider . . "Provider Documentation" section prepared by Zulay Huang. . VTE Core Measure Inpt VTE Proph given/why not?: Treatment not indicated Additional Copies To Inna Dill D.O.
--- NOTE | 2017-09-28 13:54 | NUR ---
Discharge instructions given. Scripts sent to pharmacy. Pt asked for Zofran prescription. Discussed with Dr. Huang and script sent to pharmacy. Saline lock removed. Verbalized understanding. No further questions at this time. Awaiting transportation from boyfriend.
[2017-09-28] MEDS ORDERED: ONDA4TAB65 PO (14:31)
[2017-12-22] MEDS ORDERED: CLON0.5T9 PO (20:44)
== END 2017-09-28 14:14 | disposition home or self-care (01) | DRG 195 ==
LOC: C.EDB 12:28 → C.MS4W 15:59 → ENRESERV 16:12
PROVIDERS: ADMIT Internal Medicine; ATTEND Hospitalist
DX: J18.9 Pneumonia, unspecified organism (principal); R82.71 Bacteriuria; R11.2 Nausea with vomiting, unspecified; F41.0 Panic disorder [episodic paroxysmal anxiety]; F17.210 Nicotine dependence, cigarettes, uncomplicated; Z79.899 Other long term (current) drug therapy; Z81.8 Family history of other mental and behavioral disorders; Z83.3 Family history of diabetes mellitus

== ENCOUNTER 2017-10-29 14:47 | Emergency (ER) | payer BC ==
[~2017-10-29] VITALS: Ht 157.5 cm; Wt 73.0 kg
[~2017-10-29 14:47] MED LIST changes: +ATR25 PO; -CEPH-571 PO; +NICO14DI5 TD; -PROM12.529 PO; +PRX/40 PO; +VNTHFA/IN INH
[2017-10-29 14:49] VITALS: TEMP 36.4; Ht 157.5 cm; Wt 73.0 kg
--- NOTE | 2017-10-29 15:27 | EMERGENCY ROOM VISIT NOTE ---
History First contact with patient: 15:02 Chief Complaint: NEURO SYMPTOMS Stated Complaint: PROBLEMS TAKING FORGETTING WORDS, HEADACHE Nursing Triage Summary: Pt was at work and two hours ago started "having problems talking and remebering what I am trying to say and I have a really bad headache 03/06". Denies hx migraines. History of Present Illness The patient is a 27 year old female who presents to the Emergency Room with complaints of temporary aphasia, headache, and right sided numbness and weakness. Pt was at work at [employer] and was suddenly unable to form words, then a head ache came on 03/06 a/w aura, followed by numbness and moderate weakness in the right arm and leg. Denies LOC or fall. Pt called her mother, and mother at bedside reports pt was unable to remember her computer password, which she is now able to recall. Also reports her weakness and numbness have subsided. Pt reports h/o migraines for which she takes excedrin, with aura at times. Pt denies any change in medications, has nexplanon implant x 2 y, smokes 15 cig/ day, denies Etoh, smokes marijuana last use was yesterday evening. Review of Systems See HPI for pertinent positives and negatives. Past Medical/Surgical History Medical Problems: (1) Anxiety (2) Nausea, vomiting, and diarrhea (3) Ovarian cyst (4) Ovarian cyst, right Family History Anxiety disorder Social History Smoking Status: Current Every Day Smoker Alcohol Use: none Drug Use: marijuana Marital Status: single Housing Status: lives with significant other Occupation Status: employed Current/Historical Medications Scheduled Buspirone HCl (Buspirone HCl), 20 MG PO BID Clonazepam (Clonazepam), 0.5 MG PO HS Hydroxyzine HCl (Hydroxyzine HCl), 25 MG PO HS Melatonin (Gnp Melatonin Maximum Str), 10 MG PO HS Paroxetine (Paxil), 20 MG PO HS Paroxetine (Paroxetine HCl), 40 MG PO QAM Scheduled PRN Promethazine Hcl (Phenergan Suppository), 25 MG WI Q6H PRN for Nausea Physical Exam Vital Signs Date Time Temp Pulse Resp B/P (MAP) Pulse Ox O2 Delivery O2 Flow Rate FiO2 10/29/17 17:53 75 18 111/70 97 Room Air 10/29/17 14:49 36.4 83 18 127/76 97 Room Air Physical Exam GENERAL: Awake, alert, well-appearing, in no distress. Normal speech. HENT: Normocephalic, atraumatic. Oropharynx unremarkable. EYES: Normal conjunctiva. Sclera non-icteric. NECK: Supple. No nuchal rigidity. FROM. RESPIRATORY: Clear to auscultation. CARDIAC: Regular rate, normal rhythm. Extremities warm and well perfused. ABDOMEN: Soft, non-distended. No tenderness to palpation. No rebound or guarding. No masses. MUSCULOSKELETAL: The back is symmetrical on inspection without obvious abnormality. There is no CVA tenderness to palpation. No joint edema. LOWER EXTREMITIES: Calves are equal size bilaterally and non-tender. No edema. No discoloration. NEURO: Normal sensorium. No sensory or motor deficits noted. Normal heel to toe gait, normal finger to nose, neg romberg. SKIN: No rash or jaundice noted. Medical Decision & Procedures Laboratory Results 10/29/17 15:55 Red Blood Count 4.32, Mean Corpuscular Volume 89.8, Mean Corpuscular Hemoglobin 30.1, Mean Corpuscular Hemoglobin Concent 33.5, Mean Platelet Volume 9.8, Neutrophils (%) (Auto) 65.1, Lymphocytes (%) (Auto) 26.0, Monocytes (%) (Auto) 7.0, Eosinophils (%) (Auto) 1.4, Basophils (%) (Auto) 0.3, Neutrophils # (Auto) 6.63, Lymphocytes # (Auto) 2.65, Monocytes # (Auto) 0.71, Eosinophils # (Auto) 0.14, Basophils # (Auto) 0.03 10/29/17 15:55 Test 10/29/17 15:55 White Blood Count 10.18 K/uL (4.8-10.8) Red Blood Count 4.32 M/uL (4.2-5.4) Hemoglobin 13.0 g/dL (12.0-16.0) Hematocrit 38.8 % (37-47) Mean Corpuscular Volume 89.8 fL (80-100) Mean Corpuscular Hemoglobin 30.1 pg (25-34) Mean Corpuscular Hemoglobin Concent 33.5 g/dl (32-36) Platelet Count 261 K/uL (130-400) Mean Platelet Volume 9.8 fL (7.4-10.4) Neutrophils (%) (Auto) 65.1 % Lymphocytes (%) (Auto) 26.0 % Monocytes (%) (Auto) 7.0 % Eosinophils (%) (Auto) 1.4 % Basophils (%) (Auto) 0.3 % Neutrophils # (Auto) 6.63 K/uL (1.4-6.5) Lymphocytes # (Auto) 2.65 K/uL (1.2-3.4) Monocytes # (Auto) 0.71 K/uL (0.11-0.59) Eosinophils # (Auto) 0.14 K/uL (0-0.5) Basophils # (Auto) 0.03 K/uL (0-0.2) RDW Standard Deviation 45.3 fL (36.4-46.3) RDW Coefficient of Variation 13.7 % (11.5-14.5) Immature Granulocyte % (Auto) 0.2 % Immature Granulocyte # (Auto) 0.02 K/uL (0.00-0.02) Anion Gap 5.0 mmol/L (3-11) Est Creatinine Clear Calc Drug Dose 107.3 ml/min Estimated GFR () 128.4 Estimated GFR (Non- 110.8 BUN/Creatinine Ratio 13.6 (10-20) Calcium Level 8.7 mg/dl (8.5-10.1) Total Bilirubin 0.8 mg/dl (0.2-1) Direct Bilirubin mg/dl (0-0.2) Aspartate Amino Transf (AST/SGOT) 26 U/L (15-37) Alanine Aminotransferase (ALT/SGPT) 34 U/L (12-78) Alkaline Phosphatase 85 U/L (45-117) Total Protein 7.6 gm/dl (6.4-8.2) Albumin 3.6 gm/dl (3.4-5.0) Lipase 144 U/L (73-393) Thyroid Stimulating Hormone (TSH) 1.920 uIu/ml (0.300-4.500) Human Chorionic Gonadotropin, Qual NEG (NEG) Chemistry Specimen Hemolysis Medications Administered Medications (Trade) Dose Ordered Sig/Ross Route Start Time Stop Time Status Last Admin Dose Admin Sodium Chloride 1,000 ml @ 999 mls/hr Q1H1M STAT IV 10/29/17 15:40 2/2/18 16:40 DC 10/29/17 16:00 999 MLS/HR Ketorolac Tromethamine (Toradol Inj) 30 mg NOW STAT IV 10/29/17 15:40 10/29/17 15:44 DC 10/29/17 16:03 30 MG Promethazine HCl 12.5 mg/Sodium Chloride 50.5 ml @ 204 mls/hr NOW STAT IV 10/29/17 15:40 10/29/17 15:54 DC 10/29/17 16:01 204 MLS/HR Morphine Sulfate (MoRPHine SULFATE INJ) 2 mg NOW STAT IV 10/29/17 17:42 10/29/17 17:43 DC 10/29/17 17:56 2 MG ED Course 1530 seen and assessed pt 1545 seen and assessed by attending. Labs ordered: CT head, ekg, cbc, cmp, UA. Medical Decision The patient is a 27 year old female who presents to the Emergency Room with complaints of temporary aphasia, headache, and right sided numbness and weakness. Ddx: migraine with aura, TIA/stroke, hypoglycemia, headache, tension headache, seizure Blood work and imaging of the brain all unremarkable. Suspect this is an episode of severe migraine with aura. Recommend follow up with neurology. Impression Primary Impression: Migraine headache Departure Information Dispostion Home / Self-Care Condition GOOD Patient Instructions My [facility]
[2017-10-29] MEDS ORDERED: SODIUM CHLORIDE 0.9% 1000ML 1,000 ML IV STA (15:40)
[2017-10-29] MEDS ORDERED: KETOROLAC TROMETHAMINE 30 MG/ML VIAL IV STA (15:40)
[2017-10-29] MEDS ORDERED: PROMETHAZINE HCL INJ 12.5 MG in SODIUM CHLORIDE 0.9% 50ML 50 ML IV STA (15:40)
[2017-10-29 16:08] LABS: BASO % 0.3 %; BASO ABS # 0.03 K/uL (0-0.2); EOS % 1.4 %; EOS ABS # 0.14 K/uL (0-0.5); HEMATOCRIT 38.8 % (37-47); IG# 0.02 K/uL (0.00-0.02); LYMPH ABS # 2.65 K/uL (1.2-3.4); MEAN CELL VOLUME 89.8 fL (80-100); MEAN CORPUSCULAR HEMOGLOBIN 30.1 pg (25-34); MEAN CORPUSCULAR HGB CONC 33.5 g/dl (32-36); MEAN PLATELET VOLUME 9.8 fL (7.4-10.4); MONO ABS # 0.71 K/uL (0.11-0.59); NEUT % 65.1 %; NEUT ABS # 6.63 K/uL (1.4-6.5); PLATELET COUNT 261 K/uL (130-400); RED CELL DISTRIBUTION WIDTH CV 13.7 % (11.5-14.5); RED CELL DISTRIBUTION WIDTH SD 45.3 fL (36.4-46.3); WHITE BLOOD COUNT 10.18 K/uL (4.8-10.8)
--- NOTE | 2017-10-29 16:34 | DIAGNOSTIC IMAGING REPORT ---
CT OF THE HEAD WITHOUT CONTRAST CLINICAL HISTORY: headache, episode of diff speak, rt sided tingling COMPARISON STUDY: None. CT DOSE: 537.48 mGy.cm TECHNIQUE: Helical axial images of the head were obtained without IV contrast. Automated exposure control was utilized for the study. A dose lowering technique was utilized adhering to the principles of ALARA. FINDINGS: No acute intracranial hemorrhage, midline shift or mass effect is present. Ventricular system is normal. Basilar cisterns are patent. There are no extra-axial collections. Coreas-white differentiation is maintained. There are no findings to suggest acute dural sinus thrombosis or acute territorial infarct. There are no significant calvarial abnormalities. Visualized portions of the sinuses and the mastoid air cells are clear. IMPRESSION: No acute intracranial findings. Electronically signed by: Marcell Willett M.D. 10/29/2017 4:32 PM Dictated Date/Time: 10/29/2017 4:31 PM
--- NOTE | 2017-10-29 16:44 | EMERGENCY ROOM VISIT NOTE ---
History Report prepared by Dagoberto: Barry Germain Under the Supervision of: Dr. Matthew Sal M.D. First contact with patient: 15:02 Chief Complaint: NEURO SYMPTOMS Stated Complaint: PROBLEMS TAKING FORGETTING WORDS, HEADACHE Nursing Triage Summary: Pt was at work and two hours ago started "having problems talking and remebering what I am trying to say and I have a really bad headache 6/10". Denies hx migraines. History of Present Illness The patient is a 27 year old female who presents to the Emergency Room with complaints of improving generalized neurologic symptoms beginning three hours ago. Her symptoms include headache, right sided numbness and weakness, and aphasia. The patient states that she was at work when she suddenly became unable to form words. She called her mother, and was unable to remember her computer password which is not normal for her. She has a history of migraines with aura, typically treated with Excedrin. The patient states that she occasionally has visual problems with her migraines. She states that her symptoms are similar to her previous migraines, but not identical. She states that the pain in her head is equal to that of her previous migraines. The patient's mother states that the patient was unable to finish her sentences while on the phone. The patient states that her numbness, weakness, and aphasia have improved. She still complains of a headache which she rates as a 6/10 in severity, and states "my eyes hurt". Her headache is generalized and began gradually about 45 minutes after her other symptoms. The patient denies loss of consciousness, chest pain, SOB, abdominal pain, neck pain, or fevers. She admits to smoking marijuana last night. She denies recent alcohol use. The patient denies recent injury. She notes that she felt nauseous. She has a history of anxiety and depression. She denies suicidal ideation or homicidal ideation. The patient denies chance of . Source of History: patient Onset: Three hours ago Position: other (generalized) Quality: other (neurologic symptoms) Timing: other (improving) Associated Symptoms: + headache (6/10), + nausea, + weakness (right side), + numbness (right side), No LOC, No fevers, No chest pain, No SOB, No abdominal pain Note: Symptoms: resolved aphasia. Review of Systems See HPI for pertinent positives & negatives. A total of 10 systems reviewed and were otherwise negative. Past Medical & Surgical Medical Problems: (1) Anxiety (2) Nausea, vomiting, and diarrhea (3) Ovarian cyst (4) Ovarian cyst, right Old medical records were reviewed. Nurse's notes were reviewed and I agree with. Family History Anxiety disorder Social History Smoking Status: Current Every Day Smoker Alcohol Use: none Drug Use: marijuana Marital Status: single Housing Status: lives with significant other Occupation Status: employed Current/Historical Medications Scheduled Buspirone HCl (Buspirone HCl), 20 MG PO BID Clonazepam (Clonazepam), 0.5 MG PO HS Hydroxyzine HCl (Hydroxyzine HCl), 25 MG PO HS Melatonin (Gnp Melatonin Maximum Str), 10 MG PO HS Paroxetine (Paxil), 20 MG PO HS Paroxetine (Paroxetine HCl), 40 MG PO QAM Scheduled PRN Promethazine Hcl (Phenergan Suppository), 25 MG [place] Q6H PRN for Nausea Allergies Coded Allergies: No Known Allergies (Unverified , 10/29/17) Physical Exam Vital Signs Date Time Temp Pulse Resp B/P (MAP) Pulse Ox O2 Delivery O2 Flow Rate FiO2 10/29/17 17:53 75 18 111/70 97 Room Air 10/29/17 14:49 36.4 83 18 127/76 97 Room Air Physical Exam General: Non-ill appearing young female in no acute distress. HEENT: Normal cephalic atraumatic. Pupils are equal round and reactive to light. Extraocular movements are intact. Oropharynx is pink with moist mucous membranes. No swelling of the mouth lips or tongue. Neck: Supple with a midline trachea. No meningeal signs or stiffness, no JVD or bruits. No Stridor. Chest: Clear to auscultation bilaterally. No wheezes or rhonchi. No increased work of breathing. Heart: regular rate and rhythm. Abdomen: Soft nontender, nondistended without rebound guarding or rigidity. Extremities: No cyanosis clubbing or edema. No calf tenderness or assymetry Spine/Back. Non tender to palpation. No CVA tenderness Skin: Good turgor without rashes. Neurologic exam: Cranial nerves two through 12 are intact. Motor and sensation are intact and symmetrical throughout. Normal speech, [place] of 15. Finger to nose intact. No tremor. No pronator drift. Normal gait. Normal heel to toe gait. Negative Romberg. Medical Decision & Procedures ER Provider Diagnostic Interpretation: Radiology results as stated below per my review and radiologist interpretation: CT OF THE HEAD WITHOUT CONTRAST FINDINGS: No acute intracranial hemorrhage, midline shift or mass effect is present. Ventricular system is normal. Basilar cisterns are patent. There are no extra-axial collections. Coreas-white differentiation is maintained. There are no findings to suggest acute dural sinus thrombosis or acute territorial infarct. There are no significant calvarial abnormalities. Visualized portions of the sinuses and the mastoid air cells are clear. IMPRESSION: No acute intracranial findings. Electronically signed by: Marcell Willett M.D. 10/29/2017 4:32 PM BRAIN COMBO FINDINGS: Ventricles and sulci normal in size. Brain parenchyma normal in appearance with preserved coreas-white differentiation. No mass effect or midline shift. No restricted diffusion to suggest acute ischemia. No hemorrhage. No extra-axial fluid collection. T2 skull base flow voids preserved. No abnormal parenchymal enhancement. Bone marrow signal intensity within the calvarium within normal limits. IMPRESSION: 1. No acute intracranial pathology. No abnormal enhancement. Electronically signed by: Roberto Almonte M.D. 10/29/2017 5:46 PM Laboratory Results 10/29/17 15:55 Red Blood Count 4.32, Mean Corpuscular Volume 89.8, Mean Corpuscular Hemoglobin 30.1, Mean Corpuscular Hemoglobin Concent 33.5, Mean Platelet Volume 9.8, Neutrophils (%) (Auto) 65.1, Lymphocytes (%) (Auto) 26.0, Monocytes (%) (Auto) 7.0, Eosinophils (%) (Auto) 1.4, Basophils (%) (Auto) 0.3, Neutrophils # (Auto) 6.63, Lymphocytes # (Auto) 2.65, Monocytes # (Auto) 0.71, Eosinophils # (Auto) 0.14, Basophils # (Auto) 0.03 10/29/17 15:55 Test 10/29/17 15:55 White Blood Count 10.18 K/uL (4.8-10.8) Red Blood Count 4.32 M/uL (4.2-5.4) Hemoglobin 13.0 g/dL (12.0-16.0) Hematocrit 38.8 % (37-47) Mean Corpuscular Volume 89.8 fL (80-100) Mean Corpuscular Hemoglobin 30.1 pg (25-34) Mean Corpuscular Hemoglobin Concent 33.5 g/dl (32-36) Platelet Count 261 K/uL (130-400) Mean Platelet Volume 9.8 fL (7.4-10.4) Neutrophils (%) (Auto) 65.1 % Lymphocytes (%) (Auto) 26.0 % Monocytes (%) (Auto) 7.0 % Eosinophils (%) (Auto) 1.4 % Basophils (%) (Auto) 0.3 % Neutrophils # (Auto) 6.63 K/uL (1.4-6.5) Lymphocytes # (Auto) 2.65 K/uL (1.2-3.4) Monocytes # (Auto) 0.71 K/uL (0.11-0.59) Eosinophils # (Auto) 0.14 K/uL (0-0.5) Basophils # (Auto) 0.03 K/uL (0-0.2) RDW Standard Deviation 45.3 fL (36.4-46.3) RDW Coefficient of Variation 13.7 % (11.5-14.5) Immature Granulocyte % (Auto) 0.2 % Immature Granulocyte # (Auto) 0.02 K/uL (0.00-0.02) Anion Gap 5.0 mmol/L (3-11) Est Creatinine Clear Calc Drug Dose 107.3 ml/min Estimated GFR () 128.4 Estimated GFR (Non- 110.8 BUN/Creatinine Ratio 13.6 (10-20) Calcium Level 8.7 mg/dl (8.5-10.1) Total Bilirubin 0.8 mg/dl (0.2-1) Direct Bilirubin mg/dl (0-0.2) Aspartate Amino Transf (AST/SGOT) 26 U/L (15-37) Alanine Aminotransferase (ALT/SGPT) 34 U/L (12-78) Alkaline Phosphatase 85 U/L (45-117) Total Protein 7.6 gm/dl (6.4-8.2) Albumin 3.6 gm/dl (3.4-5.0) Lipase 144 U/L (73-393) Thyroid Stimulating Hormone (TSH) 1.920 uIu/ml (0.300-4.500) Human Chorionic Gonadotropin, Qual NEG (NEG) Chemistry Specimen Hemolysis Laboratory studies as stated above per my review. Medications Administered Medications (Trade) Dose Ordered Sig/Ross Route Start Time Stop Time Status Last Admin Dose Admin Sodium Chloride 1,000 ml @ 999 mls/hr Q1H1M STAT IV 10/29/17 15:40 10/29/17 16:40 DC 10/29/17 16:00 999 MLS/HR Ketorolac Tromethamine (Toradol Inj) 30 mg NOW STAT IV 10/29/17 15:40 10/29/17 15:44 DC 10/29/17 16:03 30 MG Promethazine HCl 12.5 mg/Sodium Chloride 50.5 ml @ 204 mls/hr NOW STAT IV 10/29/17 15:40 10/29/17 15:54 DC 10/29/17 16:01 204 MLS/HR Morphine Sulfate (MoRPHine SULFATE INJ) 2 mg NOW STAT IV 10/29/17 17:42 10/29/17 17:43 DC 10/29/17 17:56 2 MG ECG Indication: other (neurologic symptoms) Rate (beats per minute): 76 Rhythm: normal sinus Findings: no acute ischemic change, no ectopy, other (Normal intervals. Baseline artifact. ) Comparison ECG Date: July 30, 2017 Change: no significant change ED Course 1502: Past medical records reviewed. The patient was evaluated in room A10, and a complete history and physical examination were performed. 1535: The patient is at MRI. 1540: Ordered Promethazine HCl 12.5 mg/Sodium Chloride 50.5 ml @ 204 mls/hr IV, Toradol Inj 30 mg IV, Sodium Chloride 1000 ml @ 999 mls/hr IV. 1740: I reassessed the patient. She feels better. She still has a headache. 1742: Ordered Morphine Sulfate 2 mg IV. 1805: Upon reevaluation, the patient is resting comfortably. I discussed the results and treatment plan with her. She verbalized agreement of the treatment plan. The patient was discharged home. Medical Decision Differentials include, but are not limited to; migraine, TIA, intracranial process, infection, aneurysm, MS, and electrolyte or metabolic abnormality. This patient comes in as described above. She has a history of migraine headaches. She had episode today where felt like she was a hard time finding the words have her words were not slurred. She had some visual changes and started getting a headache. She has some numbness on her right arm and leg her symptoms have resolved with exception of a headache at this point she looks well on exam she is nontoxic and non-lethargic. She's had no fever or chills or anything to suggest meningitis or encephalitis. she has negative Kernig and Brudzinski signs. She's had no fall or trauma. She has a normal neurologic exam. We did a CAT scan of her head was unremarkable. IV access was established and she was hydrated with IV normal saline. She is also given Toradol 30 mg iv and Phenergan 12.5 mg IV. test was negative. We also did get a MRI will with and without contrast with the brain, and it was unremarkable. After the MRI she said that the nausea was better but the headache had gotten a little bit worse she was given IV morphine 2 mg and felt much better. She does feel up to go home. At this point, I think it was more of a complex migraine. I think is likely a TIA or central neurologic process or aneurysm. This is not the worst headache of her life. She is feeling much better. I did discuss case with Dr. Kidd, the environmental protection geologist neurologist, who agrees with the plan and follow-up with her in the office. Medication Reconcilliation Current Medication List: was personally reviewed by me Blood Pressure Screening Patient's blood pressure: Normal blood pressure Blood pressure disposition: Did not require urgent referral Consults Time Called: 180 Consulting Physician: Dr. Kidd - Neurology Returned Call: [phone] Discussed the patient's case. Dr. Kidd agrees with the plan. He believes the patient's symptoms are likely a complex migraine. He will follow up with the patient. Impression Primary Impression: Head ache Additional Impression: Migraine Scribe Attestation The scribe's documentation has been prepared under my direction and personally reviewed by me in its entirety. I confirm that the note above accurately reflects all work, treatment, procedures, and medical decision making performed by me. Departure Information Dispostion Home / Self-Care Referrals Inna Dill D.O. (PCP) Forms HOME CARE DOCUMENTATION FORM, IMPORTANT VISIT INFORMATION, WORK / SCHOOL INSTRUCTIONS Patient Instructions My [facility] Additional Instructions Rest. Drink plenty of fluids. Return if: Worsening of symptoms, numbness or weakness, fever or chills, increasing pain or problems, any new problems or concerns. Follow-up with your doctor on Wednesday for recheck Problem Qualifiers
[2017-10-29 16:55] LABS: CALCIUM 8.7 mg/dl (8.5-10.1); CREATININE 0.75 mg/dl (0.60-1.20); POTASSIUM 4.1 mmol/L (3.5-5.1)
[2017-10-29 16:57] LABS: ALBUMIN 3.6 gm/dl (3.4-5.0); TOTAL PROTEIN 7.6 gm/dl (6.4-8.2)
[2017-10-29] MEDS ORDERED: MoRPHine SULFATE 2 MG/ML CARP IV STA (17:42)
--- NOTE | 2017-10-29 17:47 | DIAGNOSTIC IMAGING REPORT ---
BRAIN COMBO CLINICAL HISTORY: 27 years-old Female presenting with HOUSER, episode of rt sided numbness, episode of memory loss today, extreme headaches, blurred vision since noon, no history of trauma. TECHNIQUE: Multisequence, multiplanar MR imaging of the brain was performed before and after the administration of intravenous contrast. IV contrast: 7 mL of Gadavist. COMPARISON: CT head performed earlier the same day. FINDINGS: Ventricles and sulci normal in size. Brain parenchyma normal in appearance with preserved collins-white differentiation. No mass effect or midline shift. No restricted diffusion to suggest acute ischemia. No hemorrhage. No extra-axial fluid collection. T2 skull base flow voids preserved. No abnormal parenchymal enhancement. Bone marrow signal intensity within the calvarium within normal limits. IMPRESSION: 1. No acute intracranial pathology. No abnormal enhancement. Electronically signed by: Roberto Almonte M.D. 10/29/2017 5:46 PM Dictated Date/Time: 10/29/2017 5:40 PM
[2017-10-29 17:53] VITALS: BP 111/70; PULSE 75; O2SAT 97
== END 2017-10-29 18:17 | disposition home or self-care (01) ==
LOC: C.EDB 14:48 → C.EDA 18:17
DX: G43.909 Migraine, unspecified, not intractable, without status migrainosus (principal); F17.210 Nicotine dependence, cigarettes, uncomplicated; F12.90 Cannabis use, unspecified, uncomplicated; F41.9 Anxiety disorder, unspecified; Z97.5 Presence of (intrauterine) contraceptive device; Z81.8 Family history of other mental and behavioral disorders

== ENCOUNTER 2017-12-01 00:56 | Emergency (ER) | payer BC ==
[~2017-12-01] VITALS: Ht 157.5 cm; Wt 73.1 kg
[~2017-12-01 00:56] MED LIST changes: -ATR25 PO; -NICO14DI5 TD; -PRX/40 PO; -VNTHFA/IN INH
[2017-12-01 01:02] VITALS: TEMP 36.7; Ht 157.5 cm; Wt 73.1 kg
[2017-12-01] MEDS ORDERED: ONDANSETRON INJ 2 MG/ML 2 ML VIAL IV STA (01:15)
[2017-12-01] MEDS ORDERED: SODIUM CHLORIDE 0.9% 1000ML 1,000 ML IV STA ×3 (01:15→02:56)
[2017-12-01 01:32] LABS: BASO % 0.3 %; BASO ABS # 0.04 K/uL (0-0.2); EOS % 1.5 %; EOS ABS # 0.18 K/uL (0-0.5); HEMOGLOBIN 14.3 g/dL (12.0-16.0); IG# 0.04 K/uL (0.00-0.02); LYMPH % 35.7 %; MEAN CELL VOLUME 85.9 fL (80-100); MEAN CORPUSCULAR HEMOGLOBIN 29.2 pg (25-34); MEAN PLATELET VOLUME 9.6 fL (7.4-10.4); MONO % 9.2 %; MONO ABS # 1.13 K/uL (0.11-0.59); NEUT ABS # 6.55 K/uL (1.4-6.5); PLATELET COUNT 345 K/uL (130-400); RED CELL DISTRIBUTION WIDTH CV 13.1 % (11.5-14.5); RED CELL DISTRIBUTION WIDTH SD 41.3 fL (36.4-46.3); WHITE BLOOD COUNT 12.34 K/uL (4.8-10.8)
--- NOTE | 2017-12-01 01:42 | EMERGENCY ROOM VISIT NOTE ---
History Report prepared by Dagoberto: Gaby Bach Under the Supervision of: Dr. Carmen Ashby D.O. First contact with patient: 01:05 Chief Complaint: ANXIETY Stated Complaint: NAUSEA,VOMITING,RAPID HEART RATE,ANXIETY History of Present Illness The patient is a 27 year old female who presents to the Emergency Room with complaints of an episode of anxiety starting yesterday morning. The patient states that she struggles with anxiety daily and sometimes has an anxiety attack. She states that they happen every few months. She reports that it started yesterday morning and she felt like she had it under some control. She reports that she then started to vomit and now cannot stop vomiting. She reports that she is struggling to relax to stop. The patient reports that this is similar to previous episodes. She states that she came in to prevent dehydration since it has come to that in the past. She notes that these episodes tend to come on from being too stressed. The patient complains of feeling extremely hot, pain in her chest, pain in her legs, a headache, and not moving her bowels for one day. She notes that not moving her bowels daily is normal for her occasionally. The patient denies fever, chills, urinary symptoms , chance of , new foods, recent travel, new medications, and being around others who are sick. The patient notes that she takes Paxil, BuSpar, and Klonopin daily and has for 2 years. She notes that she also takes Hydroxyzine to help her sleep, but hasn't for the past few days since she ran out. Source of History: patient Onset: yesterday morning Position: other (global) Quality: other (anxiety) Timing: other (episode) Associated Symptoms: + headache, + chest pain, + vomiting, No fevers, No chills, No urinary symptoms Note: The patient complains of feeling extremely hot, pain in her legs, and not moving her bowels for one day. The patient denies chance of , new foods , recent travel, new medications, and being around others who are sick. Review of Systems See HPI for pertinent positives & negatives. A total of 10 systems reviewed and were otherwise negative. Past Medical & Surgical Medical Problems: (1) Anxiety (2) Nausea, vomiting, and diarrhea (3) Ovarian cyst (4) Ovarian cyst, right Family History Anxiety disorder Social History Smoking Status: Current Every Day Smoker Alcohol Use: none Drug Use: marijuana Marital Status: in relationship Housing Status: lives with significant other Occupation Status: employed Current/Historical Medications Scheduled Buspirone HCl (Buspirone HCl), 20 MG PO BID Clonazepam (Clonazepam), 0.5 MG PO HS Hydroxyzine HCl (Hydroxyzine HCl), 25 MG PO HS Melatonin (Gnp Melatonin Maximum Str), 10 MG PO HS Ondasetron Odt (Zofran Odt), 4 MG SL Q8 Paroxetine (Paxil), 20 MG PO HS Paroxetine (Paroxetine HCl), 40 MG PO QAM Allergies Coded Allergies: No Known Allergies (Unverified , 12/01/17) Physical Exam Vital Signs Date Time Temp Pulse Resp B/P (MAP) Pulse Ox O2 Delivery O2 Flow Rate FiO2 12/01/17 04:28 105 16 120/73 97 Room Air 12/01/17 02:15 70 16 126/84 94 Room Air 12/01/17 01:02 36.7 107 20 118/81 97 Room Air Physical Exam GENERAL: alert, well appearing, well nourished, mild distress, non-toxic, anxious, tearful EYE EXAM: normal conjunctiva, PERRL and EOM's grossly intact OROPHARYNX: no exudate, no erythema, lips, buccal mucosa, and tongue normal and mucous membranes are moist NECK: supple, no nuchal rigidity, no adenopathy, non-tender LUNGS: Clear to auscultation. Normal chest wall mechanics, no wheezes/rhonchi/ rales HEART: no murmurs, S1 normal and S2 normal ABDOMEN: abdomen soft, mild epigastric tenderness, normo-active bowel sounds, no masses, no rebound or guarding. BACK: Back is symmetrical on inspection and there is no deformity, no midline tenderness, no CVA tenderness. SKIN: no rashes and no bruising UPPER EXTREMITIES: upper extremities are grossly normal. Normal pulses and full range of motion. LOWER EXTREMITIES: No pitting edema. Normal pulses and full range of motion. NEURO EXAM: Normal sensorium, cranial nerves II-XII grossly intact, normal speech, no gross weakness of arms, no gross weakness of legs. Medical Decision & Procedures Laboratory Results 12/01/17 01:24 Red Blood Count 4.89, Mean Corpuscular Volume 85.9, Mean Corpuscular Hemoglobin 29.2, Mean Corpuscular Hemoglobin Concent 34.0, Mean Platelet Volume 9.6, Neutrophils (%) (Auto) 53.0, Lymphocytes (%) (Auto) 35.7, Monocytes (%) (Auto) 9.2, Eosinophils (%) (Auto) 1.5, Basophils (%) (Auto) 0.3, Neutrophils # (Auto) 6.55, Lymphocytes # (Auto) 4.40, Monocytes # (Auto) 1.13, Eosinophils # (Auto) 0.18, Basophils # (Auto) 0.04 12/01/17 01:24 Test 12/01/17 01:24 White Blood Count 12.34 K/uL (4.8-10.8) Red Blood Count 4.89 M/uL (4.2-5.4) Hemoglobin 14.3 g/dL (12.0-16.0) Hematocrit 42.0 % (37-47) Mean Corpuscular Volume 85.9 fL (80-100) Mean Corpuscular Hemoglobin 29.2 pg (25-34) Mean Corpuscular Hemoglobin Concent 34.0 g/dl (32-36) Platelet Count 345 K/uL (130-400) Mean Platelet Volume 9.6 fL (7.4-10.4) Neutrophils (%) (Auto) 53.0 % Lymphocytes (%) (Auto) 35.7 % Monocytes (%) (Auto) 9.2 % Eosinophils (%) (Auto) 1.5 % Basophils (%) (Auto) 0.3 % Neutrophils # (Auto) 6.55 K/uL (1.4-6.5) Lymphocytes # (Auto) 4.40 K/uL (1.2-3.4) Monocytes # (Auto) 1.13 K/uL (0.11-0.59) Eosinophils # (Auto) 0.18 K/uL (0-0.5) Basophils # (Auto) 0.04 K/uL (0-0.2) RDW Standard Deviation 41.3 fL (36.4-46.3) RDW Coefficient of Variation 13.1 % (11.5-14.5) Immature Granulocyte % (Auto) 0.3 % Immature Granulocyte # (Auto) 0.04 K/uL (0.00-0.02) Anion Gap 9.0 mmol/L (3-11) Est Creatinine Clear Calc Drug Dose 94.7 ml/min Estimated GFR () 110.4 Estimated GFR (Non- 95.2 BUN/Creatinine Ratio 11.0 (10-20) Calcium Level 9.4 mg/dl (8.5-10.1) Magnesium Level 2.2 mg/dl (1.8-2.4) Total Bilirubin 1.1 mg/dl (0.2-1) Aspartate Amino Transf (AST/SGOT) 16 U/L (15-37) Alanine Aminotransferase (ALT/SGPT) 24 U/L (12-78) Alkaline Phosphatase 111 U/L (45-117) Total Protein 8.2 gm/dl (6.4-8.2) Albumin 4.0 gm/dl (3.4-5.0) Globulin 4.2 gm/dl (2.5-4.0) Albumin/Globulin Ratio 1.0 (0.9-2) Lipase 96 U/L (73-393) Human Chorionic Gonadotropin, Qual NEG (NEG) Laboratory results per my review. Medications Administered Medications (Trade) Dose Ordered Sig/Ross Route Start Time Stop Time Status Last Admin Dose Admin Sodium Chloride 1,000 ml @ 999 mls/hr Q1H1M STAT IV 12/01/17 01:15 12/01/17 02:15 DC 12/01/17 01:26 999 MLS/HR Ondansetron HCl (Zofran Inj) 4 mg NOW STAT IV 12/01/17 01:15 12/01/17 01:18 DC 12/01/17 01:26 4 MG Prochlorperazine Edisylate (Compazine Inj) 5 mg NOW STAT IV 12/01/17 02:00 12/01/17 02:01 DC 12/01/17 02:14 5 MG Diphenhydramine HCl (Benadryl Inj) 25 mg NOW STAT IV 12/01/17 02:00 12/01/17 02:01 DC 12/01/17 02:13 25 MG Sodium Chloride 1,000 ml @ 999 mls/hr Q1H1M STAT IV 12/01/17 02:51 12/01/17 03:51 DC 12/01/17 02:51 999 MLS/HR Ondansetron HCl (ZOFRAN ODT 4MG Home Pack) 1 homepack UD ONCE PO 12/01/17 04:30 12/01/17 04:31 DC 12/01/17 04:45 1 HOMEPACK ED Course 0109: The patient was evaluated in room A11B. A complete history and physical exam was performed. 0115: Ordered Zofran Inj 4 mg IV, NSS 1000 mls @ 999 mls/hr IV. 0159: I reevaluated the patient and she is still vomiting. 0200: Ordered Benadryl Inj 25 mg IV, Compazine Inj 5 mg IV. 0251: Ordered NSS 1000 ml @ 999 mls/hr IV. 0252: I reevaluated the patient and she is doing okay. 0256: Ordered NSS 1000 ml @ 999 mls/hr IV. 0426: Upon reevaluation, the patient is feeling better. I discussed the findings and the treatment plan with the patient. She verbalizes agreement and understanding. The patient was discharged home. 0430: Ordered Ondansetron HCl 1 homepack PO. Medical Decision Etiologies such as gastroenteritis, food borne illness, infections, appendicitis , diverticulitis, inflammatory bowel disease, obstruction, GI bleed, biliary pathology, anxiety, as well as others were entertained. Patient markedly improved her following IV fluids and antiemetics. Patient states his episode consistent with prior episodes of anxiety exacerbation. Patient denies any other travel, new foods, medication changes, or sick contacts to suggest other etiology. Patient states mild epigastric pain only after vomiting started. Patient with no other abdominal pain or tenderness on exam. Patient with no recurrent vomiting able to tolerate p.o. Did not feel warranted additional imaging at this time. Discussed with patient follow-up, use of medications, symptoms to watch and return for, she verbalized understanding was agreeable with plan. Have a low suspicion for additional occult GI or pathology. Patient's labs otherwise reassuring. Mild hypokalemia noted likely secondary to poor p.o. intake today. Patient's vital signs stable throughout. Doubt bacteremia/sepsis, doubt GI bleed, perforation, vascular etiology. Medication Reconcilliation Current Medication List: was personally reviewed by me Blood Pressure Screening Patient's blood pressure: Normal blood pressure Blood pressure disposition: Did not require urgent referral Impression Primary Impression: Acute anxiety Additional Impressions: Nausea and vomiting Hypokalemia Scribe Attestation The scribe's documentation has been prepared under my direction and personally reviewed by me in its entirety. I confirm that the note above accurately reflects all work, treatment, procedures, and medical decision making performed by me. Departure Information Dispostion Home / Self-Care Prescriptions Ondasetron Odt (ZOFRAN ODT) 4 Mg Tab 4 MG SL Q8 for Nausea, #30 TAB Prov: Carmen Ashby, DO 12/01/17 Referrals Inna Dill D.O. (PCP) Forms HOME CARE DOCUMENTATION FORM, IMPORTANT VISIT INFORMATION Patient Instructions My [facility] Additional Instructions Please continue your regular medications as prescribed. If you have any recurrent vomiting, develop fevers, diarrhea, worsening abdominal pain or chest pain, headaches, passing out, you have any other new concerns, please return the emergency room. Please continue your regular medications as prescribed. Problem Qualifiers Additional Impressions: Nausea and vomiting Vomiting type: unspecified Vomiting Intractability: unspecified Qualified Codes: R11.2 - Nausea with vomiting, unspecified
[2017-12-01 01:49] LABS: CALCIUM 9.4 mg/dl (8.5-10.1); CREATININE 0.85 mg/dl (0.60-1.20); POTASSIUM 3.2 mmol/L (3.5-5.1)
[2017-12-01 01:52] LABS: TOTAL PROTEIN 8.2 gm/dl (6.4-8.2)
[2017-12-01] MEDS ORDERED: PROCHLORPERAZINE 5 MG/ML 2 ML VIAL IV STA (02:00)
[2017-12-01] MEDS ORDERED: DiphenhydrAMINE HCL 50 MG/ML VIAL IV STA (02:00)
[2017-12-01 04:28] VITALS: BP 120/73; PULSE 105; O2SAT 97
[2017-12-01] MEDS ORDERED: ONDANSETRON HOME PACK 4MG OD TAB PO ONE (04:30)
[2017-12-01] MEDS ORDERED: ONDA4TAB10 SL (04:37)
[2017-12-02] MEDS ORDERED: BUSP-8 PO (20:44)
[2017-12-02] MEDS ORDERED: CLON0.5T3 PO (20:44)
[2017-12-02] MEDS ORDERED: ONDA4TAB9 SL (20:44)
[2017-12-02] MEDS ORDERED: PXL20 PO (20:44)
[2017-12-02] MEDS ORDERED: MELA1CAP9 PO (20:45)
[2017-12-02] MEDS ORDERED: PROM25TA9 PO (21:45)
[2017-12-02] MEDS ORDERED: PRX/40 PO (22:38)
[2017-12-02] MEDS ORDERED: ATR25 PO (22:38)
== END 2017-12-01 04:45 | disposition home or self-care (01) ==
LOC: C.EDB 00:58 → C.EDA 04:45
DX: F41.9 Anxiety disorder, unspecified (principal); R11.2 Nausea with vomiting, unspecified; E87.6 Hypokalemia; F17.200 Nicotine dependence, unspecified, uncomplicated; F12.90 Cannabis use, unspecified, uncomplicated; Z81.8 Family history of other mental and behavioral disorders

== ENCOUNTER 2017-12-02 18:27 | Emergency (ER) | payer BC ==
[~2017-12-02] VITALS: Ht 157.5 cm; Wt 72.5 kg
[~2017-12-02 18:27] MED LIST changes: +ONDA4TAB10 SL; -PROM25SU28 PR
[2017-12-02 18:36] VITALS: TEMP 36.6; Ht 157.5 cm; Wt 72.5 kg
[2017-12-02] MEDS ORDERED: DiphenhydrAMINE HCL 50 MG/ML VIAL IV STA (19:57)
[2017-12-02] MEDS ORDERED: LORAZEPAM INJ 1 MG in SYRINGE 0.5 ML IV STA (19:57)
[2017-12-02] MEDS ORDERED: PROCHLORPERAZINE 5 MG/ML 2 ML VIAL IV STA (19:57)
[2017-12-02] MEDS ORDERED: SODIUM CHLORIDE 0.9% 1000ML 1,000 ML IV ONE ×2 (20:00)
[2017-12-02 20:09] LABS: BASO % 0.2 %; BASO ABS # 0.02 K/uL (0-0.2); EOS % 0.5 %; EOS ABS # 0.04 K/uL (0-0.5); HEMATOCRIT 38.3 % (37-47); HEMOGLOBIN 13.6 g/dL (12.0-16.0); IG# 0.03 K/uL (0.00-0.02); LYMPH % 31.5 %; LYMPH ABS # 2.71 K/uL (1.2-3.4); MEAN CELL VOLUME 84.2 fL (80-100); MEAN CORPUSCULAR HEMOGLOBIN 29.9 pg (25-34); MEAN CORPUSCULAR HGB CONC 35.5 g/dl (32-36); MEAN PLATELET VOLUME 9.4 fL (7.4-10.4); MONO % 8.7 %; MONO ABS # 0.75 K/uL (0.11-0.59); NEUT % 58.8 %; NEUT ABS # 5.04 K/uL (1.4-6.5); PLATELET COUNT 301 K/uL (130-400); RED CELL DISTRIBUTION WIDTH CV 12.9 % (11.5-14.5); RED CELL DISTRIBUTION WIDTH SD 39.2 fL (36.4-46.3); WHITE BLOOD COUNT 8.59 K/uL (4.8-10.8)
[2017-12-02 20:18] LABS: CALCIUM 9.2 mg/dl (8.5-10.1); CREATININE 0.8 mg/dl (0.60-1.20); POTASSIUM 3.2 mmol/L (3.5-5.1)
[2017-12-02] MEDS ORDERED: LORAZEPAM 2 MG/ML 1 ML VIAL ONE (20:21)
[2017-12-02 20:28] LABS: TOTAL PROTEIN 7.9 gm/dl (6.4-8.2)
--- NOTE | 2017-12-02 20:43 | DIAGNOSTIC IMAGING REPORT ---
ABDOMEN 2VIEW W/PA CHEST RTN HISTORY: 27 years-old Female Persistent vomiting acute vomiting with abdominal cramping COMPARISON: Acute abdominal series radiographs 09/26/2017 TECHNIQUE: PA view of the chest with erect and supine views of the abdomen FINDINGS: Cardiomediastinal and hilar silhouettes are within normal limits. No pneumothorax, pleural effusion, focal airspace consolidation or overt pulmonary edema. Improved aeration of the lungs comparison. Bones of the chest appear grossly intact. No pneumoperitoneum on the upright projection. Bowel gas pattern is nonobstructive. No urolith or organomegaly. Mild levoscoliosis of the lumbar spine. No fracture. IMPRESSION: 1. No acute process of the chest. 2. Nonobstructive bowel gas pattern without pneumoperitoneum. The above report was generated using voice recognition software. It may contain grammatical, syntax or spelling errors. Electronically signed by: Rommel Colón M.D. 12/02/2017 8:41 PM Dictated Date/Time: 12/02/2017 8:40 PM
[2017-12-02] MEDS ORDERED: PXL20 PO (20:44)
[2017-12-02] MEDS ORDERED: ONDA4TAB9 SL (20:44)
[2017-12-02] MEDS ORDERED: CLON0.5T3 PO (20:44)
[2017-12-02] MEDS ORDERED: BUSP-8 PO (20:44)
[2017-12-02] MEDS ORDERED: MELA1CAP9 PO (20:45)
[2017-12-02] MEDS ORDERED: PROM25TA9 PO (21:45)
--- NOTE | 2017-12-02 21:46 | EMERGENCY ROOM VISIT NOTE ---
History First contact with patient: 19:18 Chief Complaint: ANXIETY Stated Complaint: ANXIETY,NAUSEA,DRY HEAVING, TINGLING IN HANDS History of Present Illness The patient is a 27 year old female who presents to the Emergency Room with complaints of anxiety and panic attacks for the last 2 days. The patient was seen here yesterday morning. She reports continued vomiting, numbness and tingling in her fingers.. She denies any abdominal pain. No changes in bowel movements. No fever or chills. The patient does have a history of anxiety. She saw her psychiatrist 2 days ago. Reportedly, everything was fine at that visit. There is no medication changes. She denies any increased stressors in her life. She has tried her home medications including Klonopin 0.5 mg earlier today with minimal relief. She thinks that now she is significantly dehydrated from having difficulty keeping things down. Review of Systems 10 system review performed and negative unless noted in HPI or below Past Medical/Surgical History Medical Problems: (1) Anxiety (2) Nausea, vomiting, and diarrhea (3) Ovarian cyst (4) Ovarian cyst, right Family History Anxiety disorder Social History Smoking Status: Current Every Day Smoker Alcohol Use: none Drug Use: marijuana Marital Status: in relationship Housing Status: lives with significant other Occupation Status: employed Current/Historical Medications Scheduled Buspirone Hcl (Buspirone Hcl), 20 MG PO BID Clonazepam (Klonopin), 0.25 MG PO HS Hydroxyzine HCl (Hydroxyzine HCl), 25 MG PO HS Melatonin (Melatonin), 10 MG PO HS Paroxetine (Paroxetine HCl), 40 MG PO QAM Paroxetine (Paroxetine HCl), 20 MG PO HS Scheduled PRN Ondansetron (Ondansetron HCl), 4 MG SL Q8 PRN for Nausea Promethazine Hcl (Phenergan), 25 MG PO Q6H PRN for Nausea Physical Exam Vital Signs Date Time Temp Pulse Resp B/P (MAP) Pulse Ox O2 Delivery O2 Flow Rate FiO2 12/02/17 20:44 72 16 118/79 96 Room Air 12/02/17 18:36 36.6 102 20 126/83 99 Room Air Physical Exam GENERAL: 27-year-old female, slightly anxious in appearance,, in no acute distress, nondiaphoretic, well-developed well-nourished. SKIN: The skin was without rashes, erythema, edema, or bruising. HEAD: Normocephalic atraumatic. MOUTH: Mucous membranes dry NECK: Supple without nuchal rigidity. No lymphadenopathy. Cervical spine is nontender. No JVD. HEART: Regular rate and rhythm without murmurs gallops or rubs. LUNGS: Clear to auscultation bilaterally without wheezes, rales or rhonchi. No accessory muscle use. ABDOMEN: Positive bowel sounds x 4.Soft, nontender, without organomegaly. No guarding or rebound tenderness. MUSCULOSKELETAL: No muscle atrophy, erythema, or edema noted Strength 5/5 throughout. NEURO: Patient was alert and oriented to person place and time. Normal sensation to touch. No focal neurological deficits. Medical Decision & Procedures ER Provider Diagnostic Interpretation: Chest and abdominal x-rays IMPRESSION: 1. No acute process of the chest. 2. Nonobstructive bowel gas pattern without pneumoperitoneum. The above report was generated using voice recognition software. It may contain grammatical, syntax or spelling errors. Electronically signed by: Rommel Colón M.D. 12/02/2017 8:41 PM Dictated Date/Time: 12/02/2017 8:40 PM The status of this report is Signed. Draft = Not yet reviewed or approved by Radiologist. Signed = Reviewed and approved by Radiologist. <AttendingPhy></AttendingPhy> <FamilyPhy>Inna Dill D.O.</FamilyPhy> < PrimaryPhy>Inna Dill D.O.</PrimaryPhy> <UnitNumber>[id number]</UnitNumber> <VisitNumber>[id number]</VisitNumber> <PatientName>MCMAHONSNEHA</ PatientName> <DateOfBirth>1990</DateOfBirth> <Location>[facility]</Location> < ServiceDate>12/02/17</ServiceDate> <MNE>ESINDI</MNE> <OrderingPhy>Lizbeth Love PA-C</OrderingPhy> <OrderingPhyMNE>f rep ord mne</OrderingPhyMNE> < DictatingPhyMNE>f rep dict mne</DictatingPhyMNE> <CCListMNE>f rep ct mne</ CCListMNE> <AdmittingPhyMNE>f pt admit dr carballo</AdmittingPhyMNE> <AttendingPhyMNE >f pt attend dr carballo</AttendingPhyMNE> <ConsultingPhyMNE>f pt consult dr carballo</ConsultingPhyMNE> <FamilyPhyMNE>f pt fam dr carballo</FamilyPhyMNE> <OtherPhyMNE>f pt other dr carballo</OtherPhyMNE> < PrimaryPhyMNE>f pt prim care dr carballo</PrimaryPhyMNE> <ReferringPhyMNE>f pt referring dr carballo</ReferringPhyMNE> Laboratory Results 12/02/17 19:47 Red Blood Count 4.55, Mean Corpuscular Volume 84.2, Mean Corpuscular Hemoglobin 29.9, Mean Corpuscular Hemoglobin Concent 35.5, Mean Platelet Volume 9.4, Neutrophils (%) (Auto) 58.8, Lymphocytes (%) (Auto) 31.5, Monocytes (%) (Auto) 8.7, Eosinophils (%) (Auto) 0.5, Basophils (%) (Auto) 0.2, Neutrophils # (Auto) 5.04, Lymphocytes # (Auto) 2.71, Monocytes # (Auto) 0.75, Eosinophils # (Auto) 0.04, Basophils # (Auto) 0.02 12/02/17 19:47 Test 12/02/17 19:47 12/02/17 21:07 White Blood Count 8.59 K/uL (4.8-10.8) Red Blood Count 4.55 M/uL (4.2-5.4) Hemoglobin 13.6 g/dL (12.0-16.0) Hematocrit 38.3 % (37-47) Mean Corpuscular Volume 84.2 fL (80-100) Mean Corpuscular Hemoglobin 29.9 pg (25-34) Mean Corpuscular Hemoglobin Concent 35.5 g/dl (32-36) Platelet Count 301 K/uL (130-400) Mean Platelet Volume 9.4 fL (7.4-10.4) Neutrophils (%) (Auto) 58.8 % Lymphocytes (%) (Auto) 31.5 % Monocytes (%) (Auto) 8.7 % Eosinophils (%) (Auto) 0.5 % Basophils (%) (Auto) 0.2 % Neutrophils # (Auto) 5.04 K/uL (1.4-6.5) Lymphocytes # (Auto) 2.71 K/uL (1.2-3.4) Monocytes # (Auto) 0.75 K/uL (0.11-0.59) Eosinophils # (Auto) 0.04 K/uL (0-0.5) Basophils # (Auto) 0.02 K/uL (0-0.2) RDW Standard Deviation 39.2 fL (36.4-46.3) RDW Coefficient of Variation 12.9 % (11.5-14.5) Immature Granulocyte % (Auto) 0.3 % Immature Granulocyte # (Auto) 0.03 K/uL (0.00-0.02) Anion Gap 8.0 mmol/L (3-11) Est Creatinine Clear Calc Drug Dose 100.2 ml/min Estimated GFR () 118.8 Estimated GFR (Non- 102.5 BUN/Creatinine Ratio 15.4 (10-20) Calcium Level 9.2 mg/dl (8.5-10.1) Total Bilirubin 1.5 mg/dl (0.2-1) Aspartate Amino Transf (AST/SGOT) 14 U/L (15-37) Alanine Aminotransferase (ALT/SGPT) 19 U/L (12-78) Alkaline Phosphatase 103 U/L (45-117) Total Protein 7.9 gm/dl (6.4-8.2) Albumin 4.0 gm/dl (3.4-5.0) Globulin 3.9 gm/dl (2.5-4.0) Albumin/Globulin Ratio 1.0 (0.9-2) Lipase 79 U/L (73-393) Thyroid Stimulating Hormone (TSH) 1.230 uIu/ml (0.300-4.500) Urine Color YELLOW Urine Appearance CLOUDY (CLEAR) Urine pH 7.5 (4.5-7.5) Urine Specific [place] 1.019 (1.000-1.030) Urine Protein NEG (NEG) Urine Glucose (UA) NEG (NEG) Urine Ketones 2+ (NEG) Urine Occult Blood NEG (NEG) Urine Nitrite NEG (NEG) Urine Bilirubin NEG (NEG) Urine Urobilinogen NEG (NEG) Urine Leukocyte Esterase NEG (NEG) Urine WBC (Auto) 1-5 /hpf (0-5) Urine RBC (Auto) 0-4 /hpf (0-4) Urine Hyaline Casts (Auto) 1-5 /lpf (0-5) Urine Epithelial Cells (Auto) >30 /lpf (0-5) Urine Bacteria (Auto) 1+ (NEG) Urine Opiates Screen NEG (NEG) Urine Methadone, Qualitative NEG (NEG) Urine Barbiturates NEG (NEG) Urine Phencyclidine (PCP) Level NEG (NEG) Ur Amphetamine/Methamphetamine NEG (NEG) MDMA (Ecstasy) Screen NEG (NEG) Urine Benzodiazepines Screen NEG (NEG) Urine Cocaine Metabolite NEG (NEG) Urine Marijuana (THC) POS (NEG) Medications Administered Medications (Trade) Dose Ordered Sig/Ross Route Start Time Stop Time Status Last Admin Dose Admin Lorazepam 1 mg/ Syringe 1 ml @ 0.5 mls/min NOW STAT IV 12/02/17 19:57 12/02/17 19:59 DC 12/02/17 19:57 0.5 MLS/MIN Prochlorperazine Edisylate (Compazine Inj) 10 mg NOW STAT IV 12/02/17 19:57 12/02/17 20:00 DC 12/02/17 20:41 10 MG Diphenhydramine HCl (Benadryl Inj) 25 mg NOW STAT IV 12/02/17 19:57 12/02/17 20:00 DC 12/02/17 20:41 25 MG Sodium Chloride 1,000 ml @ 999 mls/hr Q1H1M ONCE IV 12/02/17 20:00 12/02/17 21:00 DC 12/02/17 20:42 999 MLS/HR Sodium Chloride 1,000 ml @ 999 mls/hr Q1H1M ONCE IV 12/02/17 20:00 12/02/17 21:00 DC 12/02/17 20:42 999 MLS/HR ED Course Patient was seen and examined Vital signs including blood pressure were reviewed medications list was verified with patient Labs were obtained, and a saline lock was established The patient was medicated with Ativan, Compazine, Benadryl and hydrated with 2 L of normal saline imaging was performed and reviewed I reviewed discharge instructions the patient. They voiced understanding and had no further questions. Medical Decision Differential diagnosis: Anxiety disorder, panic attacks, other mood disorders, bowel obstruction, gastroenteritis, pancreatitis, drug use this patient is a 27-year-old female that presents to the emergency department complaining of continued Anxiety and vomiting. On exam she was dehydrated. Her abdomen was benign. Her past visit was reviewed. Comparatively speaking, her leukocytosis has improved. She does have a slight elevation of her total bilirubin with the other LFTs being normal. This is likely due to vomiting. X- rays did not reveal any signs of bowel obstruction or pneumoperitoneum. Of note , the patient tested positive for marijuana. This likely is contributing to her symptoms. The patient had excellent symptomatic relief in the emergency department. She was instructed to continue medications as prescribed. She will follow-up with her psychiatrist as soon as possible. She was encouraged to return to the emergency department with any worsening symptoms such as severe abdominal pain, fever or persistent vomiting This chart was completed in part utilizing [employer] Speech Voice Recognition software. Attempts were made to minimize the grammatical errors, random word insertions, pronoun errors and incomplete sentences. Any formal questions or concerns about the content, text or information contained within the body of this dictation should be directly addressed to the provider for clarification. Impression Primary Impression: Acute anxiety Additional Impression: Vomiting Departure Information Dispostion Home / Self-Care Condition GOOD Prescriptions Promethazine Hcl (Phenergan) 25 Mg Tab 25 MG PO Q6H Y for Nausea, #15 TAB Prov: Lizbeth Love PA-C 12/02/17 Referrals Inna Dill D.O. (PCP) Patient Instructions My [facility] Additional Instructions You were evaluated in the emergency department for vomiting and anxiety. Please continue medications as prescribed I would follow a clear liquid diet for 24 hours. This includes things like sports drinks, water and broth. If tolerating, please advance to a bland diet such as crackers and toast after 24 hours Please take Phenergan 1 tab every 6 hours as needed for nausea Please follow-up with your psychiatrist as soon as possible. Call tomorrow morning for a follow-up appointment Please also follow-up with your primary care physician as soon as possible. Do not hesitate to return to the emergency department with any new, worsening or concerning symptoms; especially, persistent vomiting, severe abdominal pain or fever Problem Qualifiers
[2017-12-02] MEDS ORDERED: POTASSIUM CHLORIDE 10 MEQ TABCR PO STA (22:02)
[2017-12-02 22:30] VITALS: BP 119/67; PULSE 75; O2SAT 98
[2017-12-02] MEDS ORDERED: PRX/40 PO (22:38)
[2017-12-02] MEDS ORDERED: ATR25 PO (22:38)
== END 2017-12-02 22:43 | disposition home or self-care (01) ==
LOC: C.EDB 18:29
DX: F41.9 Anxiety disorder, unspecified (principal); E86.0 Dehydration; F17.200 Nicotine dependence, unspecified, uncomplicated; F12.90 Cannabis use, unspecified, uncomplicated; Z81.8 Family history of other mental and behavioral disorders; Z79.899 Other long term (current) drug therapy

== ENCOUNTER 2017-12-20 18:08 | Emergency (ER) | payer BC ==
[~2017-12-20] VITALS: Ht 162.6 cm; Wt 73.0 kg
[~2017-12-20 18:08] MED LIST changes: -BSP/10 PO; -KLN5X PO; -MELA1TAB12 PO; -ONDA4TAB10 SL; +ONDA4TAB9 SL; -PARO1TAB27 PO; +PROM25TA9 PO
[2017-12-20 18:18] VITALS: TEMP 36.6; Ht 162.6 cm; Wt 73.0 kg
--- NOTE | 2017-12-20 18:22 | EMERGENCY ROOM VISIT NOTE ---
ED Visit Note First contact with patient: 18:22 CHIEF COMPLAINT: Anxiety, nausea and vomiting HISTORY OF PRESENTING ILLNESS: This is a 27-year-old female who presents to the emergency department with complaint of anxiety, nausea and vomiting for the past 2 days. Patient states she woke up in the middle of the night on Wednesday with acute nausea and vomiting, and has been feeling very anxious ever since then. She states she occasionally has heart palpitations and chest tightness with the anxiety, although she denies these at this time. She has had persistent nausea, but states she has no longer vomiting because she has been taking Zofran and Phenergan at home. She has also taken 2 of her Klonopin doses , which she is only supposed to take once a day at nighttime, she states this has not helped her anxiety. The patient has been seen in the emergency department for symptoms of nausea/vomiting and anxiety several times, she states that she usually waits until she becomes severely dehydrated to come in, so she wanted to come in sooner to keep from becoming more dehydrated. She does admit to smoking marijuana frequently, she states about 5 or 6 times a day every day. She does state that she did not smoke at all on Wednesday, and she thinks this caused the triggering her anxiety which seems to then cause the nausea and vomiting. She did smoke marijuana yesterday and today but this has not been helping her anxiety. She denies any recent changes in her medications. She denies alcohol use and denies any other recreational drug use. She is a current everyday smoker. She denies any recent symptoms of fevers or chills, cough, sore throat, congestion, headaches, and neck pain, shortness of breath, dizziness or passing out, abdominal pain, diarrhea, urinary symptoms, or rash. REVIEW OF SYSTEMS: A complete 10 point review of systems was reviewed with the patient with pertinent positives and negatives as per history of present illness. All else were negative. PAST MEDICAL HISTORY: Reviewed in chart. SOCIAL HISTORY: Lives at home. Current every day smoker, and daily marijuana user. Denies alcohol use, denies other recreational drug use. ALLERGIES: No known allergies. PHYSICAL EXAM: CONSTITUTIONAL: Pleasant and cooperative. No acute distress. Mildly dehydrated , but otherwise well appearing and well nourished. HEENT: Normocephalic, atraumatic. Pupils equal, round and reactive to light, EOMI. TMs normal. Pharynx normal. Tacky mucous membranes. NECK: Supple, full active range of motion without discomfort. No cervical adenopathy. RESPIRATORY: Diffuse expiratory wheezing bilaterally, no crackles, rhonchi or stridor. Equal expansion bilaterally. CARDIOVASCULAR: Tachycardic. Regular rhythm with no murmurs, rubs or gallops. Normal peripheral perfusion. No edema. GASTROINTESTINAL: Soft, nontender, nondistended. No palpable masses or HSM. Bowel sounds present in all quadrants. No CVA tenderness. MUSCULOSKELETAL: Full range of motion of all joints without discomfort. INTEGUMENTARY: No rash or other significant dermatologic conditions noted. NEUROLOGIC: Alert and oriented X 4 with normal affect. Cranial nerves II-XII grossly intact. No focal neurologic deficits noted. Normal strength and sensation all four extremities. Normal speech. Normal gait observed. ED COURSE AND MEDICAL DECISION MAKING: CC: Patient presenting with complaint of anxiety, nausea and vomiting DIFFERENTIAL DIAGNOSIS: Includes, but not limited to anxiety/panic attack, cyclic vomiting syndrome, dehydration, electrolyte abnormality, gastroenteritis , cholecystitis, cholelithiasis, marijuana abuse, drug-seeking behavior, among others. INTERPRETATION OF LABS: No leukocytosis, no anemia, no significant electrolyte abnormalities, normal renal function, elevated T bili, liver enzymes otherwise normal. Urine drug screen positive for marijuana, otherwise negative. Urinalysis consistent with mild dehydration and appears to be contaminated, urine negative. IMAGING: CHEST 2 VIEWS ROUTINE CLINICAL HISTORY: wheezing, smoker, possible pneumonia COMPARISON STUDY: 12/02/2017 FINDINGS: The cardiac and mediastinal contours are normal. There is no evidence of focal pulmonary consolidation. There is no evidence of failure. No pleural effusions are visualized. IMPRESSION: No active disease in the chest. EKG: Normal sinus rhythm with a rate of 86 bpm, no acute ischemic changes, no significant changes when compared to previous EKG from 10/29/2017 by my interpretation. MEDICATION RECONCILIATION: I attest that I have personally reviewed the patient 's current medication list. INITIAL VITAL SIGNS REVIEW: I reviewed the patient's initial vital signs and interpret them as follows: T: Afebrile; BP: Hypertensive; HR: Tachycardic; RR : Within normal limits; Pulse Ox: Within normal limits on room air. Blood pressure screening: The patient was found to have an elevated blood pressure, which was felt to be situational. SUMMARY: Patient was evaluated at bedside, history and physical exam performed. Patient is alert and oriented, no acute distress, resting, in stretcher. Patient does seem mildly anxious, and is complaining of nausea, though she is not actively vomiting in the room. She appears mildly dehydrated and is noted to be tachycardic, which she states is most likely secondary to her being anxious. The abdomen is soft and nontender throughout. She does have diffuse expiratory wheezing heard on exam and a chronic cough, which she attributes to her smoking. EKG reviewed at bedside, normal sinus rhythm with no acute ischemic changes noted. Orders were placed at bedside for labs, UA and urine , urine drug screen, chest x-ray to evaluate for cardiopulmonary disease. Patient discussed with Dr. Reardon, who agrees with my assessment and plan. Labs and imaging reviewed as above, no significant abnormalities noted. Patient was initially treated with IV fluids and Zofran, she did report some improvement in her nausea, but is still feeling significantly anxious and is requesting something else. IV Ativan was ordered. Patient reassessed multiple times throughout ED stay, she reports she is feeling much improved after the Ativan. She is no longer nauseated. Her tachycardia is resolved after IV fluids and medications. I did discuss my concern for cyclic vomiting syndrome secondary to marijuana use , the patient states that she uses to help manage her anxiety which she states is not well controlled. The patient did verbalize a desire to get off of the marijuana. She states that she will speak with her psychiatrist regarding her medications for anxiety , and I encouraged her to discuss a treatment plan for coming off the marijuana. Patient was updated on all results and plan for discharge, she was also encouraged to follow closely with her PCP. Patient was also given strict return precautions should her symptoms worsen, she verbalized understanding. Patient was discharged home with her significant other in stable condition and ambulatory. Problem List Medical Problems: (1) Anxiety Status: Chronic (2) Nausea, vomiting, and diarrhea Status: Resolved (3) Ovarian cyst Status: Chronic Current/Historical Medications Scheduled Buspirone Hcl (Buspirone Hcl), 20 MG PO BID Clonazepam (Klonopin), 0.25 MG PO HS Hydroxyzine HCl (Hydroxyzine HCl), 25 MG PO HS Melatonin (Melatonin), 10 MG PO HS Paroxetine (Paroxetine HCl), 40 MG PO QAM Paroxetine (Paroxetine HCl), 20 MG PO HS Scheduled PRN Ondansetron (Ondansetron HCl), 4 MG SL Q8 PRN for Nausea Allergies Coded Allergies: No Known Allergies (Unverified , 12/20/17) Vital Signs Date Time Temp Pulse Resp B/P (MAP) Pulse Ox O2 Delivery O2 Flow Rate FiO2 12/20/17 23:41 74 18 113/76 97 12/20/17 23:15 74 95 12/20/17 23:10 75 96 Room Air 12/20/17 22:40 88 98 12/20/17 22:10 88 96 12/20/17 21:40 70 98 12/20/17 21:10 75 98 12/20/17 21:05 82 98 12/20/17 20:35 72 99 12/20/17 20:30 82 18 96 Room Air 12/20/17 20:15 77 99 12/20/17 20:10 71 16 121/83 99 Room Air 12/20/17 18:18 36.6 116 18 134/91 96 Room Air Laboratory Results 12/20/17 18:50 Red Blood Count 4.73, Mean Corpuscular Volume 86.3, Mean Corpuscular Hemoglobin 29.6, Mean Corpuscular Hemoglobin Concent 34.3, Mean Platelet Volume 9.2, Neutrophils (%) (Auto) 73.7, Lymphocytes (%) (Auto) 18.5, Monocytes (%) (Auto) 7.0, Eosinophils (%) (Auto) 0.1, Basophils (%) (Auto) 0.2, Neutrophils # (Auto) 6.48, Lymphocytes # (Auto) 1.63, Monocytes # (Auto) 0.62, Eosinophils # (Auto) 0.01, Basophils # (Auto) 0.02 12/20/17 18:50 Test 12/20/17 18:50 White Blood Count 8.80 K/uL (4.8-10.8) Red Blood Count 4.73 M/uL (4.2-5.4) Hemoglobin 14.0 g/dL (12.0-16.0) Hematocrit 40.8 % (37-47) Mean Corpuscular Volume 86.3 fL (80-100) Mean Corpuscular Hemoglobin 29.6 pg (25-34) Mean Corpuscular Hemoglobin Concent 34.3 g/dl (32-36) Platelet Count 295 K/uL (130-400) Mean Platelet Volume 9.2 fL (7.4-10.4) Neutrophils (%) (Auto) 73.7 % Lymphocytes (%) (Auto) 18.5 % Monocytes (%) (Auto) 7.0 % Eosinophils (%) (Auto) 0.1 % Basophils (%) (Auto) 0.2 % Neutrophils # (Auto) 6.48 K/uL (1.4-6.5) Lymphocytes # (Auto) 1.63 K/uL (1.2-3.4) Monocytes # (Auto) 0.62 K/uL (0.11-0.59) Eosinophils # (Auto) 0.01 K/uL (0-0.5) Basophils # (Auto) 0.02 K/uL (0-0.2) RDW Standard Deviation 42.4 fL (36.4-46.3) RDW Coefficient of Variation 13.3 % (11.5-14.5) Immature Granulocyte % (Auto) 0.5 % Immature Granulocyte # (Auto) 0.04 K/uL (0.00-0.02) Urine Color DK YELLOW Urine Appearance CLOUDY (CLEAR) Urine pH 6.0 (4.5-7.5) Urine Specific [place] 1.020 (1.000-1.030) Urine Protein NEG (NEG) Urine Glucose (UA) NEG (NEG) Urine Ketones 1+ (NEG) Urine Occult Blood NEG (NEG) Urine Nitrite NEG (NEG) Urine Bilirubin NEG (NEG) Urine Urobilinogen NEG (NEG) Urine Leukocyte Esterase NEG (NEG) Urine WBC (Auto) 5-10 /hpf (0-5) Urine RBC (Auto) 0-4 /hpf (0-4) Urine Hyaline Casts (Auto) 5-10 /lpf (0-5) Urine Epithelial Cells (Auto) >30 /lpf (0-5) Urine Bacteria (Auto) 1+ (NEG) Urine Yeast (Auto) (NONE PRSENT) Urine Test NEG (NEG) Anion Gap 7.0 mmol/L (3-11) Est Creatinine Clear Calc Drug Dose 93.6 ml/min Estimated GFR () 103.0 Estimated GFR (Non- 88.9 BUN/Creatinine Ratio 9.1 (10-20) Calcium Level 9.2 mg/dl (8.5-10.1) Total Bilirubin 1.1 mg/dl (0.2-1) Aspartate Amino Transf (AST/SGOT) 23 U/L (15-37) Alanine Aminotransferase (ALT/SGPT) 29 U/L (12-78) Alkaline Phosphatase 102 U/L (45-117) Total Protein 8.3 gm/dl (6.4-8.2) Albumin 4.0 gm/dl (3.4-5.0) Globulin 4.3 gm/dl (2.5-4.0) Albumin/Globulin Ratio 0.9 (0.9-2) Urine Opiates Screen NEG (NEG) Urine Methadone, Qualitative NEG (NEG) Urine Barbiturates NEG (NEG) Urine Phencyclidine (PCP) Level NEG (NEG) Ur Amphetamine/Methamphetamine NEG (NEG) MDMA (Ecstasy) Screen NEG (NEG) Urine Benzodiazepines Screen NEG (NEG) Urine Cocaine Metabolite NEG (NEG) Urine Marijuana (THC) POS (NEG) Medications Administered Medications (Trade) Dose Ordered Sig/Ross Route Start Time Stop Time Status Last Admin Dose Admin Sodium Chloride 1,000 ml @ 999 mls/hr Q1H1M STAT IV 12/20/17 18:33 12/20/17 19:33 DC 12/20/17 18:58 999 MLS/HR Ondansetron HCl (Zofran Inj) 4 mg NOW STAT IV 12/20/17 18:33 12/20/17 18:36 DC 12/20/17 18:59 4 MG Lorazepam (Ativan Inj) 1 mg NOW STAT IV 12/20/17 19:58 12/20/17 20:00 DC 12/20/17 20:12 1 MG Departure Information Impression Primary Impression: Acute anxiety Additional Impression: Cyclical vomiting Dispostion Home / Self-Care Condition GOOD Referrals Inna Dill D.O. (PCP) Patient Instructions ED Marijuana Abuse, ED Nausea Vomiting, ED Panic Attack, [facility] Additional Instructions You have been treated in the Emergency Department your anxiety, nausea and vomiting. Laboratory results and imaging studies have ruled out any emergent causes for your symptoms which would warrant admission or further workup. Continue your prescribed Zofran and Phenergan as needed for nausea/vomiting. STOP smoking marijuana, as this may be contributing to her symptoms of nausea and vomiting. For pain control, you can use the following [id number] medicines (if >12 yo): - Regular strength (325mg/tab) Tylenol (acetaminophen) 2 tabs every 4-6 hours as needed. Do not exceed 10 tablets in a 24 hour period. Avoid taking more than 3000 mg of Tylenol per day. This includes any other sources of acetaminophen you may take on a regular basis. - Regular strength (200 mg/tab) Advil (ibuprofen) 3 tabs every 6-8 stick with a bland diet hours as needed. Do not exceed a dose of 2400 mg per day. Drink plenty of fluids to stay well hydrated. Stick with a bland diet until your symptoms are improving and you are no longer having severe nausea. As with any trip to the Emergency Department, you should follow-up with your Primary Care Provider from today's visit. Return to the emergency department for severe abdominal or back pain, worsening nausea/vomiting, vomiting blood, blood in your stool or urine, fevers > 101.5, severe dizziness or passing out, or any other concerns. Work Instructions Return To Work: 2 days Problem Qualifiers Additional Impression: Cyclical vomiting Vomiting Intractability: non-intractable Nausea presence: with nausea Qualified Codes: G43.A0 - Cyclical vomiting, not intractable
[2017-12-20] MEDS ORDERED: ONDANSETRON INJ 2 MG/ML 2 ML VIAL IV STA (18:33)
[2017-12-20] MEDS ORDERED: SODIUM CHLORIDE 0.9% 1000ML 1,000 ML IV STA (18:33)
[2017-12-20 19:10] LABS: BASO % 0.2 %; BASO ABS # 0.02 K/uL (0-0.2); EOS % 0.1 %; EOS ABS # 0.01 K/uL (0-0.5); HEMATOCRIT 40.8 % (37-47); IG# 0.04 K/uL (0.00-0.02); LYMPH % 18.5 %; LYMPH ABS # 1.63 K/uL (1.2-3.4); MEAN CELL VOLUME 86.3 fL (80-100); MEAN CORPUSCULAR HEMOGLOBIN 29.6 pg (25-34); MEAN CORPUSCULAR HGB CONC 34.3 g/dl (32-36); MEAN PLATELET VOLUME 9.2 fL (7.4-10.4); MONO ABS # 0.62 K/uL (0.11-0.59); NEUT % 73.7 %; NEUT ABS # 6.48 K/uL (1.4-6.5); PLATELET COUNT 295 K/uL (130-400); RED CELL DISTRIBUTION WIDTH CV 13.3 % (11.5-14.5); RED CELL DISTRIBUTION WIDTH SD 42.4 fL (36.4-46.3)
--- NOTE | 2017-12-20 19:13 | DIAGNOSTIC IMAGING REPORT ---
CHEST 2 VIEWS ROUTINE CLINICAL HISTORY: wheezing, smoker, possible pneumonia COMPARISON STUDY: 12/02/2017 FINDINGS: The cardiac and mediastinal contours are normal. There is no evidence of focal pulmonary consolidation. There is no evidence of failure. No pleural effusions are visualized.[ IMPRESSION: No active disease in the chest. Electronically signed by: Raymond Walters M.D. 12/20/2017 7:11 PM Dictated Date/Time: 12/20/2017 7:11 PM
[2017-12-20 19:24] LABS: CALCIUM 9.2 mg/dl (8.5-10.1); CREATININE 0.9 mg/dl (0.60-1.20); POTASSIUM 3.7 mmol/L (3.5-5.1)
[2017-12-20 19:27] LABS: TOTAL PROTEIN 8.3 gm/dl (6.4-8.2)
[2017-12-20] MEDS ORDERED: LORAZEPAM 2 MG/ML 1 ML VIAL IV STA (19:58)
[2017-12-20 23:41] VITALS: BP 113/76; PULSE 74; O2SAT 97
== END 2017-12-20 23:48 | disposition home or self-care (01) ==
LOC: C.EDB 18:10
DX: F41.9 Anxiety disorder, unspecified (principal); G43.A0 Cyclical vomiting, in migraine, not intractable; F12.90 Cannabis use, unspecified, uncomplicated; E86.0 Dehydration; N83.209 Unspecified ovarian cyst, unspecified side; Z79.899 Other long term (current) drug therapy

== ENCOUNTER 2017-12-22 15:23 | Emergency (ER) | payer BC ==
[~2017-12-22] VITALS: Ht 157.5 cm; Wt 72.1 kg
[~2017-12-22 15:23] MED LIST changes: -PROM25TA9 PO
[2017-12-22 15:33] VITALS: TEMP 36.7; Ht 157.5 cm; Wt 72.1 kg
[2017-12-22] MEDS ORDERED: PROM25TA9 PO (16:16)
[2017-12-22] MEDS ORDERED: ONDA4TAB10 SL (16:16)
[2017-12-22] MEDS ORDERED: PROP10TA7 PO (16:16)
[2017-12-22 16:28] LABS: BASO % 0.3 %; BASO ABS # 0.03 K/uL (0-0.2); EOS % 0.3 %; EOS ABS # 0.04 K/uL (0-0.5); HEMOGLOBIN 14.4 g/dL (12.0-16.0); IG# 0.04 K/uL (0.00-0.02); LYMPH ABS # 2.46 K/uL (1.2-3.4); MEAN CELL VOLUME 85.2 fL (80-100); MEAN CORPUSCULAR HEMOGLOBIN 29.9 pg (25-34); MEAN CORPUSCULAR HGB CONC 35.1 g/dl (32-36); MEAN PLATELET VOLUME 9.1 fL (7.4-10.4); MONO % 7.6 %; MONO ABS # 0.89 K/uL (0.11-0.59); NEUT % 70.5 %; NEUT ABS # 8.27 K/uL (1.4-6.5); PLATELET COUNT 324 K/uL (130-400); RED CELL DISTRIBUTION WIDTH CV 13.1 % (11.5-14.5); RED CELL DISTRIBUTION WIDTH SD 40.5 fL (36.4-46.3); WHITE BLOOD COUNT 11.73 K/uL (4.8-10.8)
[2017-12-22 16:47] LABS: ALBUMIN 3.9 gm/dl (3.4-5.0); CALCIUM 9.3 mg/dl (8.5-10.1); CREATININE 0.84 mg/dl (0.60-1.20); POTASSIUM 3.5 mmol/L (3.5-5.1)
[2017-12-22 17:24] VITALS: BP 117/76; PULSE 67; O2SAT 98
[2017-12-22] MEDS ORDERED: PXL20 PO (20:44)
[2017-12-22] MEDS ORDERED: CLON0.5T3 PO (20:44)
[2017-12-22] MEDS ORDERED: BUSP-8 PO (20:44)
[2017-12-22] MEDS ORDERED: MELA1CAP9 PO (20:45)
--- NOTE | 2017-12-22 22:10 | EMERGENCY ROOM VISIT NOTE ---
History First contact with patient: 15:42 Chief Complaint: ANXIETY Stated Complaint: NAUSEA, ANXIETY, CHEST PAIN, RAPID PULSE, TINGLING History of Present Illness The patient is a 27 year old female who presents to the Emergency Room with complaints of persistent nausea and anxiety. This is the patient's fourth visit to the emergency department in the past 3 weeks with this complaint. She does have outpatient services with [facility] locally, and follows with them on a weekly basis. The patient states that she is trying to quit marijuana, but is having a difficult time. She does smoke but denies other drugs and alcohol. She is sleeping well, often much more than normal. The patient does not have suicidal or homicidal ideation. She does not believe that she needs admission, but is unsure what else to do. She does not have recent medication changes. She rates her discomfort a 5/10. Please note the patient was seen in part during an episode of [employer] downtime. Additional information may be scanned into the chart regarding this encounter. Review of Systems More than 10 systems were reviewed and otherwise negative with the exception of history of present illness. Past Medical/Surgical History Medical Problems: (1) Anxiety (2) Nausea, vomiting, and diarrhea (3) Ovarian cyst (4) Ovarian cyst, right Family History Anxiety disorder Social History Smoking Status: Current Every Day Smoker Alcohol Use: none Drug Use: marijuana Marital Status: in relationship Housing Status: lives with significant other Occupation Status: employed Current/Historical Medications Scheduled Buspirone Hcl (Buspirone Hcl), 20 MG PO BID Clonazepam (Klonopin), 0.25 MG PO HS Hydroxyzine HCl (Hydroxyzine HCl), 25 MG PO HS Melatonin (Melatonin), 10 MG PO HS Paroxetine (Paroxetine HCl), 40 MG PO QAM Paroxetine (Paroxetine HCl), 20 MG PO HS Propranolol (Inderal), 10 MG PO TID Scheduled PRN Ondasetron Odt (Zofran Odt), 4 MG SL Q8 PRN for Nausea Promethazine Hcl (Phenergan), 25 MG PO Q6H PRN for Nausea Physical Exam Vital Signs Date Time Temp Pulse Resp B/P (MAP) Pulse Ox O2 Delivery O2 Flow Rate FiO2 12/22/17 17:24 67 18 117/76 98 Room Air 12/22/17 15:33 36.7 89 18 121/87 99 Room Air Physical Exam VITALS: Vitals are noted on the nurse's note and reviewed by myself. Vital signs stable. GENERAL: Well-developed, well-nourished, anxious appearing female who is cooperative with the examination. HEAD: Normocephalic atraumatic. EARS: External ear normal. External auditory canals clear, tympanic membranes pearly collins without erythema or effusion bilaterally. EYES: Pupils equal round and reactive to light and accommodation. Conjunctivae without injection, sclerae without icterus. Extraocular movements intact. NOSE: Patent, turbinates without inflammation or discharge. MOUTH: Mucous membranes moist. Tonsils are not enlarged. Pharynx without erythema, blood, or exudate. Uvula midline. Airway patent. NECK: Supple without nuchal rigidity. No lymphadenopathy. No thyromegaly. Cervical spine is nontender. HEART: Regular rate and rhythm without murmurs gallops or rubs. LUNGS: Clear to auscultation bilaterally without wheezes, rales or rhonchi. No retractions or accessory muscle use. ABDOMEN: Positive normal bowel sounds x 4. Soft, nontender, without masses or organomegaly. No guarding or rebound tenderness. MUSCULOSKELETAL: No muscle atrophy, erythema, or edema noted. Full range of motion in all extremities. No tenderness to palpation. Normal gait. Strength 5/5 throughout. NEURO: Patient was alert and oriented to person place and time. CN II through XII grossly intact. No focal neurological deficits. Deep tendon reflexes 2+ throughout. SKIN: The skin was without rashes, erythema, edema, or bruising. Capillary refill less than 2 seconds. Medical Decision & Procedures Laboratory Results 12/22/17 16:12 Red Blood Count 4.81, Mean Corpuscular Volume 85.2, Mean Corpuscular Hemoglobin 29.9, Mean Corpuscular Hemoglobin Concent 35.1, Mean Platelet Volume 9.1, Neutrophils (%) (Auto) 70.5, Lymphocytes (%) (Auto) 21.0, Monocytes (%) (Auto) 7.6, Eosinophils (%) (Auto) 0.3, Basophils (%) (Auto) 0.3, Neutrophils # (Auto) 8.27, Lymphocytes # (Auto) 2.46, Monocytes # (Auto) 0.89, Eosinophils # (Auto) 0.04, Basophils # (Auto) 0.03 12/22/17 16:12 Test 12/22/17 16:03 12/22/17 16:12 Urine Color RED Urine Appearance CLOUDY (CLEAR) Urine pH 5.5 (4.5-7.5) Urine Specific [place] >= 1.030 (1.000-1.030) Urine Protein 2+ (NEG) Urine Glucose (UA) NEG (NEG) Urine Ketones 3+ (NEG) Urine Occult Blood 3+ (NEG) Urine Nitrite NEG (NEG) Urine Bilirubin 2+ (NEG) Urine Urobilinogen POS (NEG) Urine Leukocyte Esterase NEG (NEG) Urine RBC >30 /hpf (0-4) Urine WBC >30 /hpf (0-5) Urine Epithelial Cells 10-20 /lpf (0-5) Urine Bacteria 1+ (NEG) Urine Test NEG (NEG) Urine Opiates Screen NEG (NEG) Urine Methadone, Qualitative NEG (NEG) Urine Barbiturates NEG (NEG) Urine Phencyclidine (PCP) Level NEG (NEG) Ur Amphetamine/Methamphetamine NEG (NEG) MDMA (Ecstasy) Screen NEG (NEG) Urine Benzodiazepines Screen NEG (NEG) Urine Cocaine Metabolite NEG (NEG) Urine Marijuana (THC) POS (NEG) White Blood Count 11.73 K/uL (4.8-10.8) Red Blood Count 4.81 M/uL (4.2-5.4) Hemoglobin 14.4 g/dL (12.0-16.0) Hematocrit 41.0 % (37-47) Mean Corpuscular Volume 85.2 fL (80-100) Mean Corpuscular Hemoglobin 29.9 pg (25-34) Mean Corpuscular Hemoglobin Concent 35.1 g/dl (32-36) Platelet Count 324 K/uL (130-400) Mean Platelet Volume 9.1 fL (7.4-10.4) Neutrophils (%) (Auto) 70.5 % Lymphocytes (%) (Auto) 21.0 % Monocytes (%) (Auto) 7.6 % Eosinophils (%) (Auto) 0.3 % Basophils (%) (Auto) 0.3 % Neutrophils # (Auto) 8.27 K/uL (1.4-6.5) Lymphocytes # (Auto) 2.46 K/uL (1.2-3.4) Monocytes # (Auto) 0.89 K/uL (0.11-0.59) Eosinophils # (Auto) 0.04 K/uL (0-0.5) Basophils # (Auto) 0.03 K/uL (0-0.2) RDW Standard Deviation 40.5 fL (36.4-46.3) RDW Coefficient of Variation 13.1 % (11.5-14.5) Immature Granulocyte % (Auto) 0.3 % Immature Granulocyte # (Auto) 0.04 K/uL (0.00-0.02) Anion Gap 9.0 mmol/L (3-11) Est Creatinine Clear Calc Drug Dose 95.2 ml/min Estimated GFR () 112.0 Estimated GFR (Non- 96.6 BUN/Creatinine Ratio 19.3 (10-20) Calcium Level 9.3 mg/dl (8.5-10.1) Magnesium Level 2.0 mg/dl (1.8-2.4) Total Bilirubin 2.2 mg/dl (0.2-1) Aspartate Amino Transf (AST/SGOT) 20 U/L (15-37) Alanine Aminotransferase (ALT/SGPT) 26 U/L (12-78) Alkaline Phosphatase 88 U/L (45-117) Total Protein 8.0 gm/dl (6.4-8.2) Albumin 3.9 gm/dl (3.4-5.0) Globulin 4.1 gm/dl (2.5-4.0) Albumin/Globulin Ratio 1.0 (0.9-2) Lipase 89 U/L (73-393) Thyroid Stimulating Hormone (TSH) 0.990 uIu/ml (0.300-4.500) Ethyl Alcohol mg/dL < 3.0 mg/dl (0-3) ED Course Physical exam and history were performed. Nursing notes, EMR, and Medication List were personally reviewed. Patient appears to have anxiety symptoms off and on for the past several weeks. The patient is not suicidal or homicidal. She would like formal psychiatric evaluation. Blood work and urine were obtained. The case was discussed with psychiatric rifle case repairer. The patient's blood work is as above and was reviewed. She does not have a significantly elevated white blood cell count, gross anemia, bandemia, or significant electrolyte imbalance. Lipase and transaminases are not diagnostic. Urine is without signs of . Drug abuse screen was positive for marijuana. The patient is on her menses, and I suspect this is why her urine appears contaminated. The remaining labs are fairly unremarkable , and the patient is felt to be medically cleared. Patient was evaluated by the mental health liaison here in the department. The patient does not appear to qualify for admission, nor does she meet criteria for involuntary stay. The patient was given multiple resources by case management here to help facilitate outpatient care, and the patient is pleased with this. The patient is to continue her follow-up and was otherwise invited back to the ER with any new, worsening, or concerning symptoms. The chart was completed utilizing [employer] Speech Voice Recognition Software. Grammatical errors, random word insertions, pronoun errors, and incomplete sentences are an occasional consequence of this system due to software limitations, ambient noise, and hardware issues. Any formal questions or concerns about the content, text, or information contained within the body of this dictation should be directly addressed to the provider for clarification. . Medical Decision Differential diagnosis: Etiologies such as mood disorder, infection, hypoglycemia, electrolyte abnormalities, cardiac sources, intracerebral event, toxicologic, neurologic, as well as others were entertained. Impression Primary Impression: Anxiety disorder Departure Information Referrals Inna Dill D.O. (PCP) Patient Instructions [facility]
[2017-12-22] MEDS ORDERED: PRX/40 PO (22:38)
[2017-12-22] MEDS ORDERED: ATR25 PO (22:38)
== END 2017-12-22 18:00 | disposition home or self-care (01) ==
LOC: C.EDB 15:25 → C.EDA 18:00
DX: F41.9 Anxiety disorder, unspecified (principal); Z81.8 Family history of other mental and behavioral disorders; F17.200 Nicotine dependence, unspecified, uncomplicated; Z79.899 Other long term (current) drug therapy

== ENCOUNTER 2018-04-25 19:15 | Emergency (ER) | payer OTHER ==
[~2018-04-25] VITALS: Ht 157.5 cm; Wt 84.1 kg
[~2018-04-25 19:15] MED LIST changes: +ATR25 PO; +BUSP-8 PO; +CLON0.5T9 PO; +MELA1CAP9 PO; +ONDA4TAB10 SL; -ONDA4TAB9 SL; +PROM25TA9 PO; +PROP10TA7 PO; +PRX/40 PO; +PXL20 PO
[2018-04-25 19:21] VITALS: TEMP 36.9; Ht 157.5 cm; Wt 84.1 kg
--- NOTE | 2018-04-25 20:19 | EMERGENCY ROOM VISIT NOTE ---
History Report prepared by Dagoberto: Agustín Khoury Under the Supervision of: Dr. Carmen Ashby D.O. First contact with patient: 19:57 Chief Complaint: ANKLE PAIN Stated Complaint: FOOT PAIN,ANKLE PAIN,SPRAINED ANKLE History of Present Illness The patient is a 28 year old female who presents to the Emergency Room with complaints of worsening swelling and persistent pain in the left ankle that began following an accident that occurred 8 days ago. The patient states that she was hiking in [place] [employer] [place] 8 days ago when she stepped on the outside of her left ankle and injured it. There was no fracture found. The patient notes that the pain and swelling is worsened by standing on her feet for long periods of time. Patient states she has not been able to use the crutches or rest her leg over the course of the week given that her job requires her to be on her feet. Source of History: patient Onset: 8 days ago Position: ankle (left) Quality: other (swelling) Timing: worsening (swelling), other (persistent pain) Modifying Factors (Worsening): other (standing on feet for prolonged periods ) Review of Systems See HPI for pertinent positives & negatives. A total of 10 systems reviewed and were otherwise negative. Past Medical & Surgical Medical Problems: (1) Anxiety (2) Nausea, vomiting, and diarrhea (3) Ovarian cyst (4) Ovarian cyst, right Family History Anxiety disorder Social History Smoking Status: Current Every Day Smoker Alcohol Use: none Drug Use: marijuana Marital Status: in relationship Housing Status: lives with significant other Occupation Status: employed Current/Historical Medications Scheduled Buspirone Hcl (Buspirone Hcl), 20 MG PO BID Clonazepam (Klonopin), 0.25 MG PO HS Hydroxyzine HCl (Hydroxyzine HCl), 25 MG PO HS Melatonin (Melatonin), 10 MG PO HS Paroxetine (Paroxetine HCl), 40 MG PO QAM Paroxetine (Paroxetine HCl), 20 MG PO HS Propranolol (Inderal), 10 MG PO BID Scheduled PRN Ondasetron Odt (Zofran Odt), 4 MG SL Q8 PRN for Nausea Promethazine Hcl (Phenergan), 25 MG PO Q6H PRN for Nausea Allergies Coded Allergies: No Known Allergies (Unverified , 04/17/18) Physical Exam Vital Signs Date Time Temp Pulse Resp B/P (MAP) Pulse Ox O2 Delivery O2 Flow Rate FiO2 04/25/18 21:29 75 20 135/80 98 04/25/18 19:21 36.9 96 18 122/77 97 Room Air Physical Exam GENERAL: alert, well appearing, well nourished, no distress, non-toxic EYE EXAM: normal conjunctiva, PERRL and EOM's grossly intact NECK: supple, no nuchal rigidity, no adenopathy, non-tender ABDOMEN: abdomen soft, non-tender, normo-active bowel sounds, no masses, no rebound or guarding. SKIN: no rashes and no bruising UPPER EXTREMITIES: upper extremities are grossly normal. LOWER EXTREMITIES: Edema and ecchymosis to dorsal aspect of left foot, no bony tenderness, no pain over the lateral malleolus, no pain over the 5th metatarsal , no pain at the heel, pulse and sensation intact. Decreased ROM secondary to pain. NEURO EXAM: Normal sensorium, cranial nerves II-XII grossly intact, normal speech, no gross weakness of arms, no gross weakness of legs. Medical Decision & Procedures ER Provider Diagnostic Interpretation: Radiology results have been interpreted by the radiologist and reviewed by me. L ANKLE MIN 3 VIEWS ROUTINE, L FOOT MIN 3 VIEWS ROUTINE CLINICAL HISTORY: Trauma. Left ankle and left foot pain. COMPARISON STUDY: Left ankle and left foot 04/17/2018. FINDINGS: No fracture or dislocation within the left ankle or left foot. Tiny posterior calcaneal spur. Mild soft tissue swelling within the left ankle. Mild soft tissue swelling within the dorsal forefoot. IMPRESSION: Mild soft tissue swelling. No fractures within the left ankle or left foot. Electronically signed by: Calos Siu M.D. 04/25/2018 8:55 PM Dictated Date/Time: 04/25/2018 8:48 PM ED Course 2001: The patient was evaluated in room D4B. A complete history and physical exam was performed. 2116: Upon reevaluation, the patient is feeling better. I discussed the findings and the treatment plan with the patient. She verbalizes agreement and understanding. The patient was discharged home. Medical Decision Differential diagnosis: Etiologies such as fracture, dislocation, neurovascular compromise, compartment syndrome, soft tissue injury, as well as others were entertained. Discussed with patient likely persistent swelling and pain and ecchymosis slow to resolve due to patient being unable to rest and elevate her leg and continuing to attempt to ambulate on it while at work. Repeat x-rays done to evaluate for possible occult fracture missed on initial x-rays. Discussed with her symptoms to watch and return for, possible need for additional orthopedic evaluation, pain control, importance of rest and elevation, she verbalized understanding was agreeable with plan. I do not suspect occult additional trauma including proximal tibia or fibula. I do not suspect occult infectious etiology. Patient well-appearing here and verbalized understanding. Medication Reconcilliation Current Medication List: was personally reviewed by me Blood Pressure Screening Patient's blood pressure: Normal blood pressure Impression Primary Impression: Left ankle pain Additional Impression: Sprain of ankle Scribe Attestation The scribe's documentation has been prepared under my direction and personally reviewed by me in its entirety. I confirm that the note above accurately reflects all work, treatment, procedures, and medical decision making performed by me. Departure Information Dispostion Home / Self-Care Referrals Inna Dill D.O. (PCP) Patient Instructions My [facility] Additional Instructions Please use the crutches as often as possible and wear the splint or brace as often as possible. You may continue using Tylenol and ibuprofen as needed for pain. If the pain and/or swelling is persistent, please follow-up with orthopedic surgery for additional evaluation. If you develop any new or concerning symptoms, please return the emergency room. Please elevate your legs when at rest. He may continue use ice intermittently. Problem Qualifiers Primary Impression: Left ankle pain Chronicity: acute Qualified Codes: M25.572 - Pain in left ankle and joints of left foot Additional Impression: Sprain of ankle Encounter type: subsequent encounter Involved ligament of ankle: unspecified ligament Laterality: left Qualified Codes: S93.402D - Sprain of unspecified ligament of left ankle, subsequent encounter
--- NOTE | 2018-04-25 20:56 | DIAGNOSTIC IMAGING REPORT ---
L ANKLE MIN 3 VIEWS ROUTINE, L FOOT MIN 3 VIEWS ROUTINE CLINICAL HISTORY: Trauma. Left ankle and left foot pain. COMPARISON STUDY: Left ankle and left foot 04/17/2018. FINDINGS: No fracture or dislocation within the left ankle or left foot. Tiny posterior calcaneal spur. Mild soft tissue swelling within the left ankle. Mild soft tissue swelling within the dorsal forefoot. IMPRESSION: Mild soft tissue swelling. No fractures within the left ankle or left foot. Electronically signed by: Calos Siu M.D. 04/25/2018 8:55 PM Dictated Date/Time: 04/25/2018 8:48 PM
[2018-04-25 21:29] VITALS: BP 135/80; PULSE 75; O2SAT 98
== END 2018-04-25 21:29 | disposition home or self-care (01) ==
LOC: C.EDB 19:16 → C.EDD 21:29
DX: S93.402A Sprain of unspecified ligament of left ankle, initial encounter (principal); X50.0XXA Overexertion from strenuous movement or load, initial encounter; Y93.01 Activity, walking, marching and hiking; Y92.89 Other specified places as the place of occurrence of the external cause; F41.9 Anxiety disorder, unspecified; Z81.8 Family history of other mental and behavioral disorders; F17.210 Nicotine dependence, cigarettes, uncomplicated; F12.90 Cannabis use, unspecified, uncomplicated; Z79.899 Other long term (current) drug therapy